=== PATIENT | male | born 1945 | race Caucasian/White ===

== ENCOUNTER 2018-07-25 14:39 | Observation (INO) | payer OTHER, MEDICARE ==
--- NOTE | 2018-07-25 14:45 | PDOC ---
Rapid Medical Evaluation Chief Complaint: Constipation Time Seen by Provider: 07/25/18 14:41 Medical Evaluation: Allergies Allergy/AdvReac Type Severity Reaction Status Date / Time No Known Allergies Allergy Verified 03/01/18 16:08 07/25/18 14:42 I have performed a brief in person evaluation of this patient. The patient present with a CC of: Constipation x 1 with nausea. Pertinent PE findings: Lungs Clear Heart A fib Abd: Soft, non distended. Bowel sounds in all four quadrants. No pain upon palpation. I have ordered the following: KUB The patient will proceed to the ED for further evaluation: Discharge Disposition - Diagnosis Constipation Qualifiers: Constipation type: unspecified constipation type Qualified Code(s): K59.00 - Constipation, unspecified - Referrals Referrals: Willem Morelos MD [Primary Care Provider] - - Patient Instructions - Post Discharge Activity
--- NOTE | 2018-07-25 16:38 | PDOC ---
History of Present Illness - General History Source: Patient Exam Limitations: No Limitations - History of Present Illness Initial Comments: 07/25/18 17:24 The patient is a 73 year old male, with a significant past medical history of Afib, HTN, chronic lower extremity edema (following up with wound care), and spinal stenosis, who presents to the emergency department with, 2 weeks of constipation and nausea without emesis. Patient notes this occurs every 3 days. His last attempt at a bowel movement was 3 days ago without relief and significant straining. Patient notes he does not drink much water and consumes a salty diet. Patient saw SANYA Jackson, today who advised him to report to the ED for further evaluation and CT scan. He denies any recent fevers, chills, headache or dizziness. He denies any recent chest pain or shortness of breath. He denies any recent dysuria, frequency, urgency or hematuria. Allergies: NKDA Primary Care Physician: Dr. Mcdowell <Hernandez Mojica - Last Filed: 07/25/18 17:37> <Karena Wong - Last Filed: 07/25/18 17:45> <Veronica Polk - Last Filed: 07/25/18 23:10> - General Chief Complaint: Constipation Stated Complaint: CONSTIPATION Time Seen by Provider: 07/25/18 14:41 Past History <Hernandez Mojica - Last Filed: 07/25/18 17:37> <Karena Wong - Last Filed: 07/25/18 17:45> - Past Medical History Cardiac Disorders: Yes (Afib-on pradaxda) COPD: No HTN: Yes - Suicide/Smoking/Psychosocial Hx Smoking History: Never smoked Have you smoked in the past 12 months: No Information on smoking cessation initiated: No Hx Alcohol Use: No Drug/Substance Use Hx: No Substance Use Type: None <Veronica Polk - Last Filed: 07/25/18 23:10> - Past Medical History Allergies/Adverse Reactions: Allergies Allergy/AdvReac Type Severity Reaction Status Date / Time No Known Allergies Allergy Verified 03/01/18 16:08 Home Medications: Ambulatory Orders Dabigatran Etexilate Mesylate [Pradaxa -] 150 mg PO BID 03/05/17 Losartan Potassium 1 tab PO DAILY 03/05/17 Metoprolol Succinate [Toprol Xl] 100 mg PO DAILY 03/05/17 Cholecalciferol (Vitamin D3) [Vitamin D3] 10,000 unit PO DAILY 07/25/18 Torsemide 20 mg PO DAILY 07/25/18 Review of Systems - Review of Systems Able to Perform ROS?: Yes Comments:: 07/25/18 17:25 GENERAL/CONSTITUTIONAL: No fever or chills. No weakness. HEAD, EYES, EARS, NOSE AND THROAT: No change in vision. No ear pain or discharge. No sore throat. +GASTROINTESTINAL: Constipation. Nausea. No vomit. GENITOURINARY: No dysuria, frequency, or change in urination. CARDIOVASCULAR: No chest pain or shortness of breath. RESPIRATORY: No cough, wheezing, or hemoptysis. MUSCULOSKELETAL: No joint or muscle swelling or pain. No neck or back pain. SKIN: No rash NEUROLOGIC: No headache, vertigo, loss of consciousness, or change in strength/ sensation. ENDOCRINE: No increased thirst. No abnormal weight change. HEMATOLOGIC/LYMPHATIC: No anemia, easy bleeding, or history of blood clots. ALLERGIC/IMMUNOLOGIC: No hives or skin allergy. All Other Systems: Reviewed and Negative <Hernandez Mojica - Last Filed: 07/25/18 17:37> *Physical Exam - Vital Signs Last Vital Signs Temp Pulse Resp BP Pulse Ox 98.2 F 82 18 156/73 100 07/25/18 14:42 07/25/18 14:42 07/25/18 14:42 07/25/18 14:42 07/25/18 14:42 - Physical Exam Comments: 07/25/18 17:25 Constitutional: Awake, alert, oriented. No acute distress. Head: Normocephalic. Atraumatic Eyes: PERRL. EOMI. Conjunctivae are not pale. ENT: Mucous membranes are moist and intact. Posterior pharynx without exudates or erythema. Uvula midline. Neck: Supple. Full ROM. No lymphadenopathy. Cardiovascular: Regular rate. Regular rhythm. S1, S2 regular. Distal pulses are 2+ and symmetric. Pulmonary/Chest: No evidence of respiratory distress. Clear to auscultation bilaterally No wheezing, rales or rhonchi. Abdominal: Soft and non-distended. There is no tenderness. No rebound, guarding or rigidity. No organomegaly. No palpable masses. Good bowel sounds. Back: No CVA tenderness. +Musculoskeletal: Bilateral lower extremity edema, wounds wrapped by wound care. No cyanosis. No clubbing. Full range of motion in all extremities. No calf tenderness. Radial/pedal pulses are intact and 2+ bilaterally Skin: Skin is warm and dry. No petechiae. No purpura. Neurological: Alert and oriented to person, place, and time. Cranial nerves II -XII are grossly intact. Normal speech. Strength is grossly symmetric. No sensory deficits. Psychiatric: Good eye contact. Normal interaction, affect and behavior. <Hernandez Mojica - Last Filed: 07/25/18 17:37> - Vital Signs Last Vital Signs Temp Pulse Resp BP Pulse Ox 98.2 F 82 18 156/73 100 07/25/18 14:42 07/25/18 14:42 07/25/18 14:42 07/25/18 14:42 07/25/18 14:42 <Karena Wong - Last Filed: 07/25/18 17:45> - Vital Signs Last Vital Signs Temp Pulse Resp BP Pulse Ox 98.2 F 82 18 156/73 100 07/25/18 14:42 07/25/18 14:42 07/25/18 14:42 07/25/18 14:42 07/25/18 14:42 <Veronica Polk - Last Filed: 07/25/18 23:10> ED Treatment Course - LABORATORY CBC & Chemistry Diagram: 07/25/18 17:13 07/25/18 17:24 - ADDITIONAL ORDERS Additional order review: Laboratory Results 07/25/18 16:56 Stool Occult Blood Negative - Medications Given in the ED: ED Medications Discontinued Medications Generic Name Dose Route Start Last Admin Trade Name Freq PRN Reason Stop Dose Admin Sodium Chloride 500 ml 07/25/18 16:54 07/25/18 17:24 Normal Saline - IV 07/25/18 16:55 500 ml ONCE ONE Administration <Hernandez Mojica - Last Filed: 07/25/18 17:37> - LABORATORY CBC & Chemistry Diagram: 07/25/18 17:13 07/25/18 17:24 - ADDITIONAL ORDERS Additional order review: Laboratory Results 07/25/18 16:56 Stool Occult Blood Negative 07/25/18 17:13 RBC 5.11 MCV 90.3 MCHC 33.5 RDW 13.7 MPV 7.9 Neutrophils % 81.5 Lymphocytes % 8.5 Monocytes % 7.7 Eosinophils % 1.5 Basophils % 0.8 - Medications Given in the ED: ED Medications Discontinued Medications Generic Name Dose Route Start Last Admin Trade Name Katarina PRN Reason Stop Dose Admin Sodium Chloride 500 ml 07/25/18 16:54 07/25/18 17:24 Normal Saline - IV 07/25/18 16:55 500 ml ONCE ONE Administration <Karena Wong - Last Filed: 07/25/18 17:45> - LABORATORY CBC & Chemistry Diagram: 07/25/18 17:13 07/25/18 17:24 <Veronica Polk - Last Filed: 07/25/18 23:10> Medical Decision Making - Medical Decision Making 07/25/18 5:00pm Call placed to Dr. Rodriguez, patient's GI, awaiting call back. 5:39pm Second call placed to Dr. Rodriguez, awaiting call back. <Hernandez Mojica - Last Filed: 07/25/18 17:37> - Medical Decision Making 07/25/18 17:[address] Rodriguez at 17:45. <Karena Wong - Last Filed: 07/25/18 17:45> - Medical Decision Making 07/25/18 16:56 a/p: 73yo male with constipation x 3 weeks -pt saw dr. mcdowell who recommended GI outpt follow up -pt was seen by GI today who sent the patient to the ED for further eval and ct imaging for constipation -pt denies prior abd surgery -pt denies vomiting -no diarrhea -+nausea -call placed to Dr. Rodriguez - the fan blade truer to discuss the case -will place iv, labs, ct abd/pelvis -will monitor and reassess 07/25/18 17:[address] Rodriguez who states the patient has had nausea, dry heaves, and obstipation x 3 weeks. Pt c/o decreased po intake over the last few weeks. Pt was told to go to [facility] for a ct and labs requests ct be performed here and give a disk and copy of radiology report for the CT 07/25/18 22:44 pt with HENOK - will cont ivf hydration 07/25/18 22:44 ct reviewed, no abd pain - low suspicion for ileitis will place in obs for ivf hydration 07/25/18 23:10 case discussed with IM who accepts pt to obs <Veronica Polk - Last Filed: 07/25/18 23:10> *DC/Admit/Observation/Transfer - Attestations Scribe Attestion: 07/25/18 17:25 Documentation prepared by Hernandez Mojica, acting as medical claims examiner for Veronica Polk DO. <Hernandez Mojica - Last Filed: 07/25/18 17:37> <Karena Wong - Last Filed: 07/25/18 17:45> - Discharge Dispostion Decision to Admit order: Yes - Attestations Physician Attestion: 07/25/18 23:09 I, Dr. Veronica Polk DO, attest that this document has been prepared under my direction and personally reviewed by me in its entirety. I further attest, that it accurately reflects all work, treatment, procedures and medical decision -making performed by me. <Veronica Polk - Last Filed: 07/25/18 23:10> Diagnosis at time of Disposition: HENOK (acute kidney injury) Constipation Qualifiers: Constipation type: unspecified constipation type Qualified Code(s): K59.00 - Constipation, unspecified - Discharge Dispostion Condition at time of disposition: Fair - Referrals Referrals: Willem Morelos MD [Primary Care Provider] - - Patient Instructions - Post Discharge Activity
[2018-07-25] MEDS ORDERED: SODIUM CHLORIDE 0.9% 1000 ML INFUS.BAG IV ONE ×2 (16:54→22:42)
[2018-07-25 17:26] LABS: BASO % 0.8 % (0-2.0); EOS % 1.5 % (0-4.5); HEMATOCRIT 46.2 % (35.4-49); HEMOGLOBIN 15.5 GM/dL (11.7-16.9); LYMPH % 8.5 % (8-40); MCH 30.2 pg (25.7-33.7); MCHC 33.5 g/dl (32.0-35.9); MEAN CELL VOLUME 90.3 fl (80-96); MEAN PLT VOLUME 7.9 fl (7.5-11.1); MONO % 7.7 % (3.8-10.2); NEUT % 81.5 % (42.8-82.8); PLATELET COUNT 189 K/MM3 (134-434); RBC 5.11 M/mm3 (4.00-5.60); RDW 13.7 % (11.9-15.9); WHITE BLOOD COUNT 7.5 K/mm3 (4.0-10.0)
[2018-07-25 17:45] LABS: INR 1.25 (0.83-1.09); PROTHROMBIN TIME (PATIENT) 14.8 SEC (9.7-13.0)
[2018-07-25] MEDS ORDERED: ONDANSETRON 4 MG/2 ML VIAL IVPUSH ONE (17:47)
[2018-07-25 17:48] LABS: ACTIVATED PTT 45.1 SECONDS (25.2-36.5)
[2018-07-25 17:55] LABS: URINE APPEARANCE CLEAR; URINE BILIRUBIN NEGATIVE (<2.0 mg/dL); URINE COLOR YELLOW; URINE GLUCOSE (UA) NEGATIVE (NEGATIVE); URINE KETONE TRACE (NEGATIVE); URINE LEUK ESTERASE NEGATIVE (NEGATIVE); URINE NITRITE NEGATIVE (NEGATIVE); URINE PROTEIN NEGATIVE (NEGATIVE); URINE UROBILINOGEN NEGATIVE mg/dL (0.2-1.0)
[2018-07-25 18:00] LABS: ALBUMIN 4.1 g/dl (3.4-5.0); ALK PHOS 98 U/L (45-117); ANION GAP 12 MMOL/L (8-16); BILIRUBIN,TOTAL 1.4 mg/dL (0.2-1); BLOOD UREA NITROGEN 21 mg/dL (7-18); CALCIUM 9.2 mg/dL (8.5-10.1); CHLORIDE 104 mmol/L (98-107); CO2 26 mmol/L (21-32); CREATININE 1.8 mg/dL (0.55-1.3); GLUCOSE,RANDOM 81 mg/dL (74-106); LIPASE 70 U/L (73-393); POTASSIUM 4.5 mmol/L (3.5-5.1); SGOT/AST 21 U/L (15-37); SGPT/ALT 20 U/L (13-61); SODIUM 142 mmol/L (136-145); TOT PROT 8.1 g/dl (6.4-8.2)
[2018-07-25] MEDS ORDERED: ONDANSETRON 4 MG/2 ML VIAL ONE (18:17)
[2018-07-25] MEDS ORDERED: METOPROLOL TARTRATE 5 MG/5 ML VIAL IVPUSH ONE (23:58)
[2018-07-26] MEDS ORDERED: METOPROLOL TARTRATE 5 MG/5 ML VIAL ONE (00:01)
[2018-07-26] MEDS ORDERED: POLYETHYLENE GLYCOL 3350 119 GM BTL PO PRN (00:29)
[2018-07-26] MEDS ORDERED: LACTATED RINGERS SOLUTION 1,000 ML/1,000 ML INFUS.BAG IV SCH (00:30)
--- NOTE | 2018-07-26 00:34 | HP ---
CHIEF COMPLAINT: constipation PCP: HISTORY OF PRESENT ILLNESS: Patient is a 73 y/o male with a history of afib, HTN, and LE edema who presents with constipation. He reports for the past three weeks he has been constipated. His last bowel movement was yesterday and reports it was very hard. He reports he feels like he really has to go, but nothing comes out. When he does have a bowel movement he doesn't have any pain. He does not have a past history of this. He reports his diet has been the same, but he only drinks one mug of water a day. Patient also has nausea typically when he has the feeling he needs to defecate. He has not vomited. He has not had any abdominal surgery. Patient denies any recent sick contacts, headache, chest pain, or shortness of breath. ER course was notable for: (1) po hydration (2) (3) Recent Travel: denies PAST MEDICAL HISTORY: afib, HTN, and LE edema PAST SURGICAL HISTORY: Social History: Smoking: denies Alcohol: Drugs: Family History: Allergies No Known Allergies Allergy (Verified 03/01/18 16:08) HOME MEDICATIONS: Home Medications Medication Instructions Recorded Dabigatran Etexilate Mesylate 150 mg PO BID 03/05/17 [Pradaxa -] Losartan Potassium 1 tab PO DAILY 03/05/17 Metoprolol Succinate [Toprol Xl] 100 mg PO DAILY 03/05/17 Cholecalciferol (Vitamin D3) 10,000 unit PO DAILY 07/25/18 [Vitamin D3] Torsemide 20 mg PO DAILY 07/25/18 REVIEW OF SYSTEMS CONSTITUTIONAL: Absent: fever, chills, diaphoresis, generalized weakness, malaise, loss of appetite, weight change HEENT: Absent: rhinorrhea, nasal congestion, throat pain, throat swelling, difficulty swallowing, mouth swelling, ear pain, eye pain, visual changes CARDIOVASCULAR: Absent: chest pain, syncope, palpitations, irregular heart rate, lightheadedness , peripheral edema RESPIRATORY: Absent: cough, shortness of breath, dyspnea with exertion, orthopnea, wheezing, stridor, hemoptysis GASTROINTESTINAL: Absent: abdominal pain, abdominal distension, nausea, vomiting, diarrhea, constipation, melena, hematochezia GENITOURINARY: Absent: dysuria, frequency, urgency, hesitancy, hematuria, flank pain, genital pain MUSCULOSKELETAL: Absent: myalgia, arthralgia, joint swelling, back pain, neck pain SKIN: Absent: rash, itching, pallor HEMATOLOGIC/IMMUNOLOGIC: Absent: easy bleeding, easy bruising, lymphadenopathy, frequent infections ENDOCRINE: Absent: unexplained weight gain, unexplained weight loss, heat intolerance, cold intolerance NEUROLOGIC: Absent: headache, focal weakness or paresthesias, dizziness, unsteady gait, seizure, mental status changes, bladder or bowel incontinence PSYCHIATRIC: Absent: anxiety, depression, suicidal or homicidal ideation, hallucinations. PHYSICAL EXAMINATION Vital Signs - 24 hr 07/25/18 07/25/18 07/26/18 14:42 19:11 00:13 Temperature 98.2 F 98 F Pulse Rate 82 Pulse Rate [ 108 H Right Radial] Respiratory 18 18 Rate Blood Pressure 156/73 158/94 Blood Pressure 135/95 [Left Arm] O2 Sat by Pulse 100 98 Oximetry (%) GENERAL: Awake, alert, and fully oriented, in no acute distress. HEAD: Normal with no signs of trauma. EYES: Pupils equal, round and reactive to light, extraocular movements intact, sclera anicteric, conjunctiva clear. EARS, NOSE, THROAT: Moist mucous membranes NECK: Normal range of motion, supple without lymphadenopathy, JVD, or masses. LUNGS: Breath sounds equal, clear to auscultation bilaterally. No wheezes, and no crackles. No accessory muscle use. HEART: irregu;ar, 3+ systolic murmur heard best at [place] ABDOMEN: Soft, nontender, not distended, hyperactive bowel sounds, no guarding, no rebound, no masses. MUSCULOSKELETAL: Normal range of motion at all joints. No bony deformities or tenderness. No CVA tenderness. LOWER EXTREMITIES: LE edematous bilaterally, wrapped NEUROLOGICAL: Cranial nerves II-XII intact. Normal speech. Normal gait. PSYCHIATRIC: Cooperative. Good eye contact. Appropriate mood and affect. SKIN: Warm, dry, normal turgor, no rashes or lesions noted, normal capillary refill. CBC, BMP 07/25/18 17:13 07/25/18 17:24 ASSESSMENT/PLAN: Patient is a 73 y/o male with a history of afib, HTN, and LE edema who presents with constipation. #HENOK 2/2 to dehydration - Cr 1.8, unknown baseline - continue LR @ 100 - f/u Cr tomorrow - CT: mild right renal hypertrophy - consider nephrology if Cr does not improve #Constipation 2/2 to dehydration - Docusate/Senna 2 tab BID - Miralax prn - fleet enema if needed - CT: mild concentric wall thickening along terminal ileum, no colonic fecal retention # afib - continue anticoagulation and rate control home meds - patient missed home dose of medications while in hospital today #HTN - continue home medications Visit type - Emergency Visit Emergency Visit: Yes ED Registration Date: 07/25/18 Care time: The patient presented to the Emergency Department on the above date and was hospitalized for further evaluation of their emergent condition. - New Patient This patient is new to me today: Yes Date on this admission: 07/26/18 - Critical Care Critical Care patient: No
[2018-07-26] MEDS ORDERED: DABIGATRAN ETEXILATE MESYLATE 75 MG CAPSULE PO SCH (00:45)
[2018-07-26] MEDS: SENNOSIDES/DOCUSATE COMBO (SENNA PLUS) TABLET (UD) PO SCH ×2 (01:41→10:35)
--- NOTE | 2018-07-26 02:29 | PN ---
Teaching Attending Note Name of Resident: Monique Norris ATTENDING PHYSICIAN STATEMENT I saw and evaluated the patient. I reviewed the resident's note and discussed the case with the resident. I agree with the resident's findings and plan as documented. SUBJECTIVE: Patient is a very pleasant 73 y/o CM with a PMH significant for Afib on MS and Pradaxa, Chronic LE wounds with Qweek dressing changes, obesity, HTN. He presents to the ER with a CC of constipation. He has not been able to have a BM for several days despite trying; will pass small, hard stools. Has been trying PRN stool softeners at home but no relief. Admits he drinks very little ; he drinks only 'one mug' of water per day; used to drink a good amount of soda but was told to stop so he hasn't even been having that intake. He does have an elevated Cr. and an unknown baseline. Is still making urine PMH and PSH per chart Social: Denies EtOH, tobacco FH asked and noncontributory 10 sys ROS done and negative aside from HPI OBJECTIVE: VSS, labs and imaging reviewed NAD, resting in bed, AAOx3 NT ND +BS Normal skin turgor, no rashes Sym CW expansion with lungs ctab CN2-12 grossly intact without FNDs Normal mood, appropriate behavior CT shows no necessary acute abnormalities and does not endorse fecal retention. Notable for enlarged pelvic LN and adrenal myelolipoma. ASSESSMENT AND PLAN: Mr. Ring is a 73 y/o CM presenting with constipation and found to have an HENOK with unknown baseline. 1) HENOK -Unknown baseline; empirically hydrating -Monitor BMP, UOP -If worsens obtain FeNa and consult nephrology -Holding losartan 2) Acute Constipation -No fecal burdeon seen on CT; no obstruction -Stool softeners, PRN miralax. If no BM will proceed with enema. 3) Afib -Continue home meds; was slightly tachy on presentation likely due to dehydration and not taking meds today 4) HTN -Hold losartan as #1; resume when clinically appropriate. 5) Chronic LE wounds/edema -Consult wound care for dressing change (he follows here) 6) Pelvic LN -Followup as outpatient; incidental finding on CT 7) Adrenal myelolipoma -Followup as outpatient; incidental finding on CT Full Code
[2018-07-26 04:24] VITALS: BMI 32.7
--- NOTE | 2018-07-26 09:31 | EKG ---
Test Reason : Blood Pressure : / mmHG Vent. Rate : 128 BPM Atrial Rate : 159 BPM P-R Int : 000 ms QRS Dur : 076 ms QT Int : 292 ms P-R-T Axes : 000 -26 090 degrees QTc Int : 426 ms POOR DATA QUALITY, INTERPRETATION MAY BE ADVERSELY AFFECTED ATRIAL FIBRILLATION WITH RAPID VENTRICULAR RESPONSE MODERATE VOLTAGE CRITERIA FOR LVH, MAY BE NORMAL VARIANT NONSPECIFIC T WAVE ABNORMALITY ABNORMAL ECG NO PREVIOUS ECGS AVAILABLE Confirmed by JOHN TORRE, SKINNY ([id number]) on 07/26/2018 9:30:31 AM Referred By: Confirmed By:SKINNY LOPEZ MD
[2018-07-26] MEDS ORDERED: LOSARTAN POTASSIUM 50 MG TABLET (FP) PO SCH (10:00)
[2018-07-26] MEDS ORDERED: TORSEMIDE 20 MG TABLET (FP) PO SCH (10:00)
[2018-07-26] MEDS ORDERED: PATIENT'S OWN MEDICATION (NON-FORMULARY) (Cholecalciferol (Vitamin D3) [Vitamin D3] 10,000 PO SCH (10:00)
[2018-07-26] MEDS ORDERED: DABIGATRAN ETEXILATE MESYLATE 150 MG CAPSULE PO SCH (10:00)
[2018-07-26] MEDS ORDERED: PT OWN MED DRAWER 7, Y5N ONE ×3 (10:41→13:24)
[2018-07-26 10:42] LABS: ANION GAP 7 MMOL/L (8-16); BLOOD UREA NITROGEN 23 mg/dL (7-18); CALCIUM 8.6 mg/dL (8.5-10.1); CHLORIDE 104 mmol/L (98-107); CO2 27 mmol/L (21-32); CREATININE 1.7 mg/dL (0.55-1.3); GLUCOSE,RANDOM 96 mg/dL (74-106); POTASSIUM 4.2 mmol/L (3.5-5.1); SODIUM 139 mmol/L (136-145)
[2018-07-26 13:49] VITALS: BP 156/88; PULSE 95; TEMP 97.3
--- NOTE | 2018-07-26 16:01 | PN ---
Progress Note (short form) - Note Progress Note: VAscular Surgery Pt seen and examined. Bl lower ext doing well. Cont alginate and williams wraps. Pt being DC today. Will come back to [facility] next week. Judd Greer DO
--- NOTE | 2018-07-26 17:58 | PN ---
Teaching Attending Note Name of Resident: Wen Elizabeth ATTENDING PHYSICIAN STATEMENT I saw and evaluated the patient. I reviewed the resident's note and discussed the case with the resident. I agree with the resident's findings and plan as documented. 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 ABd: SOft, NT/ND lABS: CBCD WBC 7.5 K/mm3 (4.0-10.0) 07/25/18 17:13 RBC 5.11 M/mm3 (4.00-5.60) 07/25/18 17:13 Hgb 15.5 GM/dL (11.7-16.9) 07/25/18 17:13 Hct 46.2 % (35.4-49) 07/25/18 17:13 MCV 90.3 fl (80-96) 07/25/18 17:13 MCHC 33.5 g/dl (32.0-35.9) 07/25/18 17:13 RDW 13.7 % (11.9-15.9) 07/25/18 17:13 Plt Count 189 K/MM3 (134-434) 07/25/18 17:13 MPV 7.9 fl (7.5-11.1) 07/25/18 17:13 CMP Sodium 139 mmol/L (136-145) 07/26/18 09:40 Potassium 4.2 mmol/L (3.5-5.1) 07/26/18 09:40 Chloride 104 mmol/L (98-107) 07/26/18 09:40 Carbon Dioxide 27 mmol/L (21-32) 07/26/18 09:40 Anion Gap 7 MMOL/L (8-16) L 07/26/18 09:40 BUN 23 mg/dL (7-18) H 07/26/18 09:40 Creatinine 1.7 mg/dL (0.55-1.3) H 07/26/18 09:40 Creat Clearance w eGFR 39.82 (>60) 07/26/18 09:40 Calcium 8.6 mg/dL (8.5-10.1) 07/26/18 09:40 Total Bilirubin 1.4 mg/dL (0.2-1) H 07/25/18 17:24 AST 21 U/L (15-37) 07/25/18 17:24 ALT 20 U/L (13-61) 07/25/18 17:24 Alkaline Phosphatase 98 U/L (45-117) 07/25/18 17:24 Total Protein 8.1 g/dl (6.4-8.2) 07/25/18 17:24 Albumin 4.1 g/dl (3.4-5.0) 07/25/18 17:24 ASSESSMENT AND PLAN: 73 y/o M W Afib on MS and Pradaxa, Chronic LE wounds with Qweek dressing changes, obesity, HTN. He presents to the ER with a CC of constipation. constipation has resolved: as he complains of weight loss and his last colonoscopy more than 10 years ago, encouraged to get colonoscopy as O/P to which he agreed. encouraged to iprve his bowel regimen HENOK: likely due to decreaed po intake, has o F/u with PMD as O/P in 1 week Dispo: home rest of the management per HS note
--- NOTE | 2018-07-26 17:59 | DS ---
Physical Exam: SUBJECTIVE: Patient seen and examined at bedside. Patient states he is no longer having any more nausea or constipation. In fact, this morning he has three bowel movements. He states he felt better and less bloated/nauseous after eating breakfast this morning. He denies any CP/SOB/N/V fevers or chills. OBJECTIVE: Vital Signs Period Temp Pulse Resp BP Sys/Whelan Pulse Ox Last 24 Hr 97.3 F-98.5 F 95-108 18-20 135-158/78-95 97-99 PHYSICAL EXAM GENERAL: The patient is awake, alert, and fully oriented, in no acute distress. EYES:no Scleral icterus NECK: no JVD LUNGS: CTA B/L; no rales, rhonchi or wheezing HEART: Regular rate and rhythm, S1, S2 without murmur, rub or gallop. ABDOMEN: Soft, nontender, nondistended, normoactive bowel sounds, no guarding, no rebound, no hepatosplenomegaly, no masses. EXTREMITIES: 2+ pulses, warm, well-perfused, no edema. chronic venous stasis changes B/L PSYCH: Normal mood, normal affect. SKIN: Warm, dry, normal turgor, no rashes or lesions noted. LABS Laboratory Results - last 24 hr 07/25/18 07/25/18 07/25/18 17:13 17:13 17:13 PT with INR 14.80 H INR 1.25 H PTT (Actin FS) 45.1 H Sodium Potassium Chloride Carbon Dioxide Anion Gap BUN Creatinine Creat Clearance w eGFR Random Glucose Lactic Acid 1.7 Calcium Magnesium Total Bilirubin AST ALT Alkaline Phosphatase Total Protein Albumin Lipase Urine Color Yellow Urine Appearance Clear Urine pH 5.0 Ur Specific [place] 1.014 Urine Protein Negative Urine Glucose (UA) Negative Urine Ketones Trace H Urine Blood Negative Urine Nitrite Negative Urine Bilirubin Negative Urine Urobilinogen Negative Ur Leukocyte Esterase Negative 07/25/18 07/26/18 17:24 09:40 PT with INR INR PTT (Actin FS) Sodium 142 139 Potassium 4.5 4.2 Chloride 104 104 Carbon Dioxide 26 27 Anion Gap 12 7 L BUN 21 H 23 H Creatinine 1.8 H 1.7 H Creat Clearance w eGFR 37.27 39.82 Random Glucose 81 96 Lactic Acid Calcium 9.2 8.6 Magnesium 2.0 Total Bilirubin 1.4 H AST 21 ALT 20 Alkaline Phosphatase 98 Total Protein 8.1 Albumin 4.1 Lipase 70 L Urine Color Urine Appearance Urine pH Ur Specific [place] Urine Protein Urine Glucose (UA) Urine Ketones Urine Blood Urine Nitrite Urine Bilirubin Urine Urobilinogen Ur Leukocyte Esterase Imaging: abdominal pelvis/CT No definite CT findings of acute abnormality are identified. There is equivocal mild concentric wall thickening along the terminal ileum which is probably artifactual due to limited distention and less likely on the basis of ileitis. Correlate clinically. If there is clinical concern in this regard additional evaluation utilizing nonemergent CT enterography may be considered. Minimal to mild splenomegaly. A nonspecific mildly enlarged left pelvic lymph node is noted. Additional evaluation utilizing PET/ CT may be considered. Alternatively comparison with previous CT/MRI studies would be helpful if available from a different facility to document stability. Cholelithiasis. Small to moderate umbilical hernia containing fat only. Mild right renal atrophy (8.4 cm length). 4.9 x 3.9 cm left adrenal myelolipoma. There is partial imaging of cardiomegaly which is probably mild. If clinically indicated correlate with radiography and/or echocardiography. No significant colonic fecal retention is noted. HOSPITAL COURSE: Date of Admission:07/25/18 73 y/o male with PMH of Afib, HTN, chronic LE wounds, presented to the ED with complaints of nausea and constipation for the past 3 days. Patient endorses to having had decreased fiber intake and decreased water intake. On arrival to the ED, patients labs were within normal limits except he did have an HENOK with a Cr of 1.7, unclear what his baseline was- likely secondary to dehydration. An abdominal/pelvis CT was done showing no evidence of fecal retention. Patient was given fluids, started on a bowel regimen and his constipation subsided and his HENOK improved with his Cr upon discharge being 1.3 He was given strict instruction to follow up with his PCP within one week. Date of Discharge: 07/26/18 Minutes to complete discharge: 39 Discharge Summary Reason For Visit: ACUTE KIDNEY INJURY Condition: Improved - Instructions Diet, Activity, Other Instructions: You were seen in the hospital for constipation. You received a bowel regimen to help you go as well as an enema, which relieved your constipation. Your kidneys were mildly injured in the hospital, likely due to dehydration. You should follow with your primary care physician to evaluate your kidneys within 1 week. Medical Recommendations: Please make an appointment in 1 week to with your primary care physician Please make an appointment within 1 month with a shake sawyer (which we can provide) for possible colonoscopy Please drink ample amounts of water to help with your kidneys Avoid medications such as advil, aleve, motrin, ibuprofen, which can all harm your kidneys If you experience severe pain, nausea, vomiting, diarrhea, fevers, chills, chest pain or shortness of breath, please return to the emergency department immediately. Referrals: Ct Bailey DO [Staff Physician] - 1 Month Willem Morelos MD [Primary Care Provider] - 1 Week Disposition: HOME - Home Medications Comprehensive Discharge Medication List: Ambulatory Orders Dabigatran Etexilate Mesylate [Pradaxa -] 150 mg PO BID 03/05/17 Losartan Potassium 1 tab PO DAILY 03/05/17 Metoprolol Succinate [Toprol Xl] 100 mg PO DAILY 03/05/17 Cholecalciferol (Vitamin D3) [Vitamin D3] 10,000 unit PO DAILY 07/25/18 Torsemide 20 mg PO DAILY 07/25/18 Problem List - Problems (1) HENOK (acute kidney injury) Code(s): N17.9 - ACUTE KIDNEY FAILURE, UNSPECIFIED (2) Constipation Code(s): K59.00 - CONSTIPATION, UNSPECIFIED Qualifiers: Constipation type: unspecified constipation type Qualified Code(s): K59.00 - Constipation, unspecified This patient is new to me today: Yes Date on this admission: 07/26/18 Emergency Visit: Yes ED Registration Date: 07/25/18 Care time: The patient presented to the Emergency Department on the above date and was hospitalized for further evaluation of their emergent condition. Critical Care patient: No - Discharge Referral Referred to [facility] Med P.C.: No
== END 2018-07-26 16:43 | disposition home or self-care (01) ==
LOC: JER 14:39 → JERBED 23:09 → J7W 07-26 03:41
PROVIDERS: ADMIT Internal Medicine; ATTEND Internal Medicine
PROC: 3E033GC Introduction of Other Therapeutic Substance into Peripheral Vein, Percutaneous Approach (ICD-10-PCS; principal; 2018-07-25)
PROC: 3E0337Z Introduction of Electrolytic and Water Balance Substance into Peripheral Vein, Percutaneous Approach (ICD-10-PCS; 2018-07-25)
DX: N17.9 Acute kidney failure, unspecified (principal); K59.00 Constipation, unspecified; E86.0 Dehydration; S81.809D Unspecified open wound, unspecified lower leg, subsequent encounter; X58.XXXD Exposure to other specified factors, subsequent encounter; I10 Essential (primary) hypertension; I48.91 Unspecified atrial fibrillation; R60.0 Localized edema; D17.79 Benign lipomatous neoplasm of other sites; R59.0 Localized enlarged lymph nodes
CPT/HCPCS: 36415; 74176-TC; 80048; 80053; 81003; 82272; 83605; 83690; 83735; 85025; 85610; 85730; 93005; 93010; 96374; 96375; 99285-25; G0378; J7030

== ENCOUNTER 2019-06-05 15:30 | Inpatient (IN) | payer OTHER, MEDICARE ==
--- NOTE | 2019-06-05 15:35 | PDOC ---
Rapid Medical Evaluation Chief Complaint: Wound Time Seen by Provider: 06/05/19 15:33 Medical Evaluation: Allergies Allergy/AdvReac Type Severity Reaction Status Date / Time No Known Allergies Allergy Verified 09/25/18 13:54 06/05/19 15:33 I have performed a brief in-person evaluation of this patient. The patient presents with a chief complaint of: sent from wound care for infection Pertinent physical exam findings: deferred I have ordered the following: labs, xray, urine The patient will proceed to the ED for further evaluation. Discharge Disposition - Diagnosis Venous ulcer - Referrals - Patient Instructions - Post Discharge Activity
--- NOTE | 2019-06-05 16:28 | PDOC ---
History of Present Illness - General Chief Complaint: Wound Stated Complaint: RT LEG WOUND Time Seen by Provider: 06/05/19 15:33 History Source: Patient Exam Limitations: No Limitations Past History - Travel Traveled outside of the country in the last 30 days: No Close contact w/someone who was outside of country & ill: No - Past Medical History Allergies/Adverse Reactions: Allergies Allergy/AdvReac Type Severity Reaction Status Date / Time No Known Allergies Allergy Verified 06/05/19 15:36 Home Medications: Ambulatory Orders Losartan Potassium 1 tab PO DAILY 03/05/17 Metoprolol Succinate [Toprol Xl] 200 mg PO DAILY 03/05/17 Cholecalciferol (Vitamin D3) [Vitamin D3] 10,000 unit PO DAILY 07/25/18 Torsemide 20 mg PO DAILY 07/25/18 Apixaban [Eliquis -] 5 mg PO BID 06/05/19 Anemia: No Asthma: No Cancer: No Cardiac Disorders: Yes (Afib-) CVA: No COPD: No CHF: No Dementia: No Diabetes: No GI Disorders: Yes Disorders: No HTN: Yes Hypercholesterolemia: No Liver Disease: No Seizures: No Thyroid Disease: No Other medical history: wound right leg - Surgical History Abdominal Surgery: No Appendectomy: No Cardiac Surgery: No Cholecystectomy: No Lung Surgery: No Neurologic Surgery: No Orthopedic Surgery: No - Suicide/Smoking/Psychosocial Hx Smoking History: Never smoked Have you smoked in the past 12 months: No Information on smoking cessation initiated: No Hx Alcohol Use: No Drug/Substance Use Hx: No Substance Use Type: None Hx Substance Use Treatment: No Review of Systems - Review of Systems Able to Perform ROS?: Yes Comments:: 06/05/19 19:36 CONSTITUTIONAL: Absent: fever, chills, diaphoresis, generalized weakness, malaise, loss of appetite HEENT: Absent: rhinorrhea, nasal congestion, throat pain, throat swelling, difficulty swallowing, mouth swelling, ear pain, eye pain, visual Changes CARDIOVASCULAR: Absent: chest pain, loss of consciousness, palpitations, irregular heart rate, peripheral edema RESPIRATORY: Absent: cough, shortness of breath, dyspnea with exertion, orthopnea, wheezing, stridor, hemoptysis GASTROINTESTINAL: Absent: abdominal pain, abdominal distension, nausea, vomiting, diarrhea, constipation, melena, hematochezia GENITOURINARY: Absent: dysuria, frequency, urgency, hesitancy, hematuria, flank pain, genital pain MUSCULOSKELETAL: Absent: myalgia, arthralgia, joint swelling SKIN: Present: redness, warmth, and weeping skin Absent: rash, itching, pallor HEMATOLOGIC/IMMUNOLOGIC: Absent: easy bleeding, easy bruising, lymphadenopathy, frequent infections ENDOCRINE: Absent: unexplained weight gain, unexplained weight loss, heat intolerance, cold intolerance NEUROLOGIC: Absent: headache, focal weakness or paresthesias, dizziness, unsteady gait, seizure, mental status changes, bladder or bowel incontinence PSYCHIATRIC: Absent: anxiety, depression, suicidal or homicidal ideation, hallucinations. Is the patient limited Mohawk proficient: No *Physical Exam - Vital Signs Last Vital Signs Temp Pulse Resp BP Pulse Ox 98.2 F 85 19 117/95 96 06/05/19 15:32 06/05/19 15:32 06/05/19 15:32 06/05/19 15:32 06/05/19 15:32 - Physical Exam Comments: 06/05/19 19:37 GENERAL: Well developed, well nourished. Awake and alert. No acute distress. HEENT: Normocephalic, atraumatic. PERRLA, EOMI. No conjunctival pallor. Sclera are non- icteric. Moist mucous membranes. Oropharynx is clear. NECK: Supple. Full ROM. No JVD. Carotid pulses 2+ and symmetric, without bruits. No thyromegaly. No lymphadenopathy. CARDIOVASCULAR: Regular rate and rhythm. No murmurs, rubs, or gallops. Distal pulses are 2+ and symmetric. PULMONARY: No evidence of respiratory distress. Lungs clear to auscultation bilaterally. No wheezing, rales or rhonchi. ABDOMINAL: Soft. Non-tender. Non-distended. No rebound or guarding. No organomegaly. Normoactive bowel sounds. MUSCULOSKELETAL Normal range of motion at all joints. No bony deformities or tenderness. No CVA tenderness. EXTREMITIES: No cyanosis. No clubbing. No edema. No calf tenderness. SKIN: Cellulitis with abrasions noted to the anterior RLE with associated weeping from the ankle to the knee. Normal capillary refill. No jaundice. NEUROLOGICAL: Alert, awake, appropriate. Cranial nerves 2-12 intact. No deficits to light touch and temperature in face, upper extremities and lower extremities. No motor deficits in the in face, upper extremities and lower extremities. Normoreflexic in the upper and lower extremities. Normal speech. Toes are down- going bilaterally. Gait is normal without ataxia. PSYCHIATRIC: Cooperative. Good eye contact. Appropriate mood and affect. ED Treatment Course - LABORATORY CBC & Chemistry Diagram: 06/05/19 18:00 06/05/19 18:42 Medical Decision Making - Medical Decision Making 06/05/19 19:38 The patient is a 74 y/o M with PMH of afib (on A/C), HTN, presents to the ER today with cellulitis to the RLE for one week. The patient states he went to wound care today and was told to come to the ER for evaluation. He states that the leg is very wet and warm to the touch. He notes that his leg has been very itchy as well and edematous. States that it is difficult to walk due to the leg swelling. Denies fevers, chills, lightheadedness, weakness, vomiting, chest pain , numbness, tingling and weakness to the affected extremity. PCP: Dr. Mcdowell A/P: Cellulitis On exam: Cellulitis with abrasions noted to the anterior RLE with associated weeping from the ankle to the knee. No leukocytosis, H&H stable Blood CX drawn CR 2.7, baseline 1.8. Will need admission for IV abx, vancomycin and zosyn given in the ED Symphony paged. Sign out given to Dr. Hinds *DC/Admit/Observation/Transfer Diagnosis at time of Disposition: HENOK (acute kidney injury) Cellulitis Qualifiers: Site of cellulitis: extremity Site of cellulitis of extremity: lower extremity Laterality: right Qualified Code(s): L03.115 - Cellulitis of right lower limb - Discharge Dispostion Condition at time of disposition: Stable Decision to Admit order: Yes - Referrals - Patient Instructions - Post Discharge Activity
[2019-06-05] MEDS ORDERED: VANCOMYCIN 1,000 MG in DEXTROSE 5%-WATER - 250 ML IVPB ONE (18:32)
[2019-06-05] MEDS ORDERED: PIPERACILLIN/TAZOB 3.375 GM 3.375 GM in DEXTROSE 5%-WATER - 50 ML IVPB ONE (18:32)
[2019-06-05 19:03] LABS: BASO % 0.5 % (0-2.0); EOS % 9.7 % (0-4.5); HEMATOCRIT 39.9 % (35.4-49); HEMOGLOBIN 13.2 GM/dL (11.7-16.9); LYMPH % 12.5 % (8-40); MCHC 33.2 g/dl (32.0-35.9); MEAN CELL VOLUME 93.5 fl (80-96); MEAN PLT VOLUME 8.5 fl (7.5-11.1); MONO % 10.7 % (3.8-10.2); NEUT % 66.6 % (42.8-82.8); PLATELET COUNT 230 K/MM3 (134-434); RBC 4.27 M/mm3 (4.00-5.60); RDW 15.7 % (11.9-15.9); WHITE BLOOD COUNT 8.5 K/mm3 (4.0-10.0)
[2019-06-05] MEDS ORDERED: PIPERACILLIN/TAZOB 3.375 GM 3.375 GM/50 ML BAG IVPB ONE (19:10)
[2019-06-05 19:15] LABS: INR 1.69 (0.83-1.09); PROTHROMBIN TIME (PATIENT) 20.1 SEC (9.7-13.0)
[2019-06-05 19:31] LABS: ALBUMIN 3.7 g/dl (3.4-5.0); BILIRUBIN,TOTAL 1.7 mg/dL (0.2-1); BLOOD UREA NITROGEN 40.9 mg/dL (7-18); CREATININE 2.7 mg/dL (0.55-1.3); POTASSIUM 4.9 mmol/L (3.5-5.1)
[2019-06-05] MEDS ORDERED: SODIUM CHLORIDE 1,000 ML IV STA (19:42)
[2019-06-05] MEDS ORDERED: VANCOMYCIN 1 GRAM (PRE-DOCKED) 1,000 MG/250 ML BAG IVPB ONE (20:07)
--- NOTE | 2019-06-05 21:52 | PDOC ---
*Physical Exam - Vital Signs Last Vital Signs Temp Pulse Resp BP Pulse Ox 98.2 F 85 19 117/95 96 06/05/19 15:32 06/05/19 15:32 06/05/19 15:32 06/05/19 15:32 06/05/19 15:32 ED Treatment Course - LABORATORY CBC & Chemistry Diagram: 06/05/19 18:00 06/05/19 18:42 - ADDITIONAL ORDERS Additional order review: Laboratory Results 06/05/19 06/05/19 18:42 18:00 PT with INR 20.10 H INR 1.69 H Sodium 138 Potassium 4.9 Chloride 104 Carbon Dioxide 30 Anion Gap 5 L BUN 40.9 H Creatinine 2.7 H Est GFR (CKD-EPI)AfAm 25.93 Est GFR (CKD-EPI)NonAf 22.37 Random Glucose 93 Calcium 10.0 Total Bilirubin 1.7 H AST 28 ALT 36 Alkaline Phosphatase 134 H Total Protein 8.0 Albumin 3.7 06/05/19 18:00 RBC 4.27 MCV 93.5 MCHC 33.2 RDW 15.7 D MPV 8.5 Neutrophils % 66.6 Lymphocytes % 12.5 D Monocytes % 10.7 H Eosinophils % 9.7 H D Basophils % 0.5 - Medications Given in the ED: ED Medications Discontinued Medications Generic Name Dose Route Start Last Admin Trade Name Freq PRN Reason Stop Dose Admin Vancomycin HCl 1,000 mg/ 250 mls @ 166.667 mls/hr 06/05/19 18:32 06/05/19 20: 14 Dextrose IVPB 06/05/19 20:01 166.667 mls/hr ONCE ONE Administration Piperacillin Sod/Tazobactam 50 mls @ 100 mls/hr 06/05/19 18:32 06/05/19 19:11 Sod 3.375 gm/ Dextrose IVPB 06/05/19 19:01 100 mls/hr ONCE ONE Administration Protocol Medical Decision Making - Medical Decision Making 06/05/19 21:52 Case reviewed, agree with assessment and plan *DC/Admit/Observation/Transfer Diagnosis at time of Disposition: HENOK (acute kidney injury) Cellulitis Qualifiers: Site of cellulitis: extremity Site of cellulitis of extremity: lower extremity Laterality: right Qualified Code(s): L03.115 - Cellulitis of right lower limb - Discharge Dispostion Condition at time of disposition: Stable - Referrals - Patient Instructions - Post Discharge Activity
--- NOTE | 2019-06-06 01:54 | HP ---
CHIEF COMPLAINT:RLE cellulitis PCP:Dr. Mcdowell HISTORY OF PRESENT ILLNESS: Patient is a 74 year old male with past medical history of Afib (on Eliquis), HTN, CHF and chronic venous insufficiency, presented to the ED from wound care clinic due to worsening right lower leg edema and redness for 1 week. Patient has history of bilateral venous dermatitis with excoriations for more than a year and follows up at the wound care clinic. For about a week, patient reported worsening of the right leg swelling and redness but denies any pain. He followed up at the wound care clinic and was sent down to the ED for further management. Patient denies any fever, chills, headache, dizziness, nausea, vomiting, chest pain, SOB, abdominal pain, diarrhea, urinary symptoms. ER course was notable for: (1)Right tibia/fibula xray - no acute right leg pathology (2)Vanc/zosyn given (3) Recent Travel:denies PAST MEDICAL HISTORY: Afib HTN CHF chronic venous insufficiency PAST SURGICAL HISTORY: Social History: Smoking:denies Alcohol:denies Drugs: denies Family History: Allergies No Known Allergies Allergy (Verified 06/05/19 15:36) HOME MEDICATIONS: Home Medications Medication Instructions Recorded Losartan Potassium 1 tab PO DAILY 03/05/17 Metoprolol Succinate [Toprol Xl] 200 mg PO DAILY 03/05/17 Cholecalciferol (Vitamin D3) 10,000 unit PO DAILY 07/25/18 [Vitamin D3] Torsemide 20 mg PO DAILY 07/25/18 Apixaban [Eliquis -] 5 mg PO BID 06/05/19 REVIEW OF SYSTEMS CONSTITUTIONAL: Absent: fever, chills, diaphoresis, generalized weakness, malaise, loss of appetite, weight change HEENT: Absent: rhinorrhea, nasal congestion, throat pain, throat swelling, difficulty swallowing, mouth swelling, ear pain, eye pain, visual changes CARDIOVASCULAR: Absent: chest pain, syncope, palpitations, irregular heart rate, lightheadedness , peripheral edema RESPIRATORY: Absent: cough, shortness of breath, dyspnea with exertion, orthopnea, wheezing, stridor, hemoptysis GASTROINTESTINAL: Absent: abdominal pain, abdominal distension, nausea, vomiting, diarrhea, constipation, melena, hematochezia GENITOURINARY: Absent: dysuria, frequency, urgency, hesitancy, hematuria, flank pain, genital pain MUSCULOSKELETAL: Absent: myalgia, arthralgia, joint swelling, back pain, neck pain SKIN: Absent: rash, itching, pallor HEMATOLOGIC/IMMUNOLOGIC: Absent: easy bleeding, easy bruising, lymphadenopathy, frequent infections ENDOCRINE: Absent: unexplained weight gain, unexplained weight loss, heat intolerance, cold intolerance NEUROLOGIC: Absent: headache, focal weakness or paresthesias, dizziness, unsteady gait, seizure, mental status changes, bladder or bowel incontinence PSYCHIATRIC: Absent: anxiety, depression, suicidal or homicidal ideation, hallucinations. PHYSICAL EXAMINATION Vital Signs - 24 hr 06/05/19 15:32 Temperature 98.2 F Pulse Rate 85 Respiratory 19 Rate Blood Pressure 117/95 O2 Sat by Pulse 96 Oximetry (%) GENERAL: Awake, alert, and fully oriented, in no acute distress. HEAD: Normal with no signs of trauma. EYES:PERRLA, EOMI, sclera anicteric, conjunctiva clear. EARS, NOSE, THROAT: Moist mucous membranes. NECK: Normal range of motion, supple. LUNGS: Breath sounds equal, clear to auscultation bilaterally. HEART: Irregular, systolic murmur heard best at RUSB ABDOMEN: Soft, nontender, not distended, normoactive bowel sounds. MUSCULOSKELETAL: Normal range of motion at all joints. No CVA tenderness. UPPER EXTREMITIES: 2+ pulses, warm, well-perfused. No peripheral edema. LOWER EXTREMITIES: 2+ pulses, warm, well-perfused. No calf tenderness. B/L LE edema. RLE: +erythema, edema, multiple excoriations, weeping NEUROLOGICAL: Cranial nerves II-XII intact. Normal speech. PSYCHIATRIC: Cooperative. Good eye contact. Appropriate mood and affect. Laboratory Results - last 24 hr 06/05/19 06/05/19 06/05/19 18:00 18:00 18:42 WBC 8.5 RBC 4.27 Hgb 13.2 Hct 39.9 MCV 93.5 MCH 31.0 MCHC 33.2 RDW 15.7 D Plt Count 230 D MPV 8.5 Absolute Neuts (auto) 5.6 Neutrophils % 66.6 Lymphocytes % 12.5 D Monocytes % 10.7 H Eosinophils % 9.7 H D Basophils % 0.5 Nucleated RBC % 0 PT with INR 20.10 H INR 1.69 H Sodium 138 Potassium 4.9 Chloride 104 Carbon Dioxide 30 Anion Gap 5 L BUN 40.9 H Creatinine 2.7 H Est GFR (CKD-EPI)AfAm 25.93 Est GFR (CKD-EPI)NonAf 22.37 Random Glucose 93 Calcium 10.0 Total Bilirubin 1.7 H AST 28 ALT 36 Alkaline Phosphatase 134 H Total Protein 8.0 Albumin 3.7 ASSESSMENT/PLAN: Patient is a 74 year old male with past medical history of Afib (on Eliquis), HTN, CHF and chronic venous insufficiency, presented to the ED from wound care clinic due to worsening right lower leg edema and redness for 1 week. #RLE cellulitis -Right tibia/fibula xray: no acute right leg pathology -Vanc/Zosyn given at the ED -will start Ceftriaxone 1gm daily -Vanc level in am -ESR/CRP ordered -Blood cultures done -ID (Dr. Allen) consulted. -keep leg elevated -will order duplex to rule out DVT #KIZZY on CKD -Cr 2.7 (baseline 1.7) -will order renal Us -Urine lytes -Daily weight, I&O -Avoid nephrotoxic agents such as NSAIDs, contrast. Will hold Losartan #Elevated T bili/Alk phos -will order liver US to rule out hepatobiliary pathology #Atrial fibrillation -Continue Eliquis 5mg bid -Continue Metoprolol 200mg daily #HTN -On Metroprolol -Will hold Losartan in light of Kizzy #CHF -Continue Torsemide #FEN -Not on any standing fluids -Electrolytes wnl, routine bmp monitoring -Sodium controlled diet #Prophylaxis -On Eliquis 5mg bid #Disposition -full code -admit to med surg Visit type - Emergency Visit Emergency Visit: Yes ED Registration Date: 06/05/19 Care time: The patient presented to the Emergency Department on the above date and was hospitalized for further evaluation of their emergent condition. - New Patient This patient is new to me today: Yes Date on this admission: 06/05/19 - Critical Care Critical Care patient: No ATTENDING PHYSICIAN STATEMENT I saw and evaluated the patient. I reviewed the resident's note and discussed the case with the resident. I agree with the resident's findings and plan as documented. SUBJECTIVE: OBJECTIVE: ASSESSMENT AND PLAN:
--- NOTE | 2019-06-06 02:02 | PN ---
Teaching Attending Note Name of Resident: Patricia England ATTENDING PHYSICIAN STATEMENT I saw and evaluated the patient. chart, data, imaging reviewed. I reviewed the resident's note and discussed the case with the resident. I agree with the resident's findings and plan as documented. SUBJECTIVE: 74 y/o M with PMH of afib (on A/C), HTN, sent from wound care clinic for worsening of right leg edema, erythema, pain. He denied trauma to his leg, no fevers, chills, or recent travels. OBJECTIVE: Last Vital Signs Temp Pulse Resp BP Pulse Ox 98.2 F 85 19 117/95 96 06/05/19 15:32 06/05/19 15:32 06/05/19 15:32 06/05/19 15:32 06/05/19 15:32 gen- nad, aaox3 heent , nc, at cv-irregularly irregular, no murmur chest clear ext- b/l lower ext chronic venous stasis, right leg swollen, 3+pitting edema, weeping, erythematous, warm to touch, no overt breaks in skin Abnormal Lab Results 06/05/19 06/05/19 06/05/19 18:00 18:00 18:42 Monocytes % 10.7 H Eosinophils % 9.7 H D PT with INR 20.10 H INR 1.69 H Anion Gap 5 L BUN 40.9 H Creatinine 2.7 H Total Bilirubin 1.7 H Alkaline Phosphatase 134 H xray of right leg appreciated ASSESSMENT AND PLAN: #cellulitis of right lower extremity. Leukocytosis+ DVT must be ruled out -med/surg -s/p vancomycin/zosyn -id consult -blood cultures x2 -esr, crp -lower ext duplex to r/o dvt -leg elevation #HENOK on ckd -i/o -daily weights -renal sonogram -avoid nephrotoxins #hyperbilirubinemia, elevated alk phos -no abd pain -consider hepatobiliary u/s if no improvement or symptoms #afib - c/w Apixaban dvt ppx -on eliquis
[2019-06-06 07:10] LABS: BASO % 0.8 % (0-2.0); EOS % 13.8 % (0-4.5); HEMATOCRIT 32.5 % (35.4-49); HEMOGLOBIN 11.2 GM/dL (11.7-16.9); LYMPH % 14.1 % (8-40); MCHC 34.5 g/dl (32.0-35.9); MEAN CELL VOLUME 92.6 fl (80-96); MEAN PLT VOLUME 8.1 fl (7.5-11.1); MONO % 11.8 % (3.8-10.2); NEUT % 59.5 % (42.8-82.8); PLATELET COUNT 173 K/MM3 (134-434); RBC 3.51 M/mm3 (4.00-5.60); RDW 15.4 % (11.9-15.9); WHITE BLOOD COUNT 5.4 K/mm3 (4.0-10.0)
[2019-06-06 07:21] LABS: ALBUMIN 2.8 g/dl (3.4-5.0); BILIRUBIN,TOTAL 1.3 mg/dL (0.2-1); BLOOD UREA NITROGEN 42.7 mg/dL (7-18); CALCIUM 8.9 mg/dL (8.5-10.1); CREATININE 2.9 mg/dL (0.55-1.3); MAGNESIUM 2.4 mg/dL (1.8-2.4); POTASSIUM 4.6 mmol/L (3.5-5.1); TOT PROT 6.1 g/dl (6.4-8.2)
--- NOTE | 2019-06-06 09:27 | CONSULT ---
- Consultation REQUESTING PROVIDER: CONSULT REQUEST: We have been asked to surgically evaluate this patient for B/l LE celluliltis PCP:Kosta Wall MD HISTORY OF PRESENT ILLNESS: 74yo M was consulted to Vascular/Wound care team for evaluation of b/l LE cellulitis, pt is known to the wound care service. Has long history of venous stasis changes in his legs. Pt was seen at the wound care clinic yesterday and found to have cellulitis and was sent to ED for evaluation. Pt states that his Rt leg is more swollen than than usually and is much more swollen than the Left. PMHx: HTN, afib, chf Home Medications Medication Instructions Recorded Losartan Potassium 1 tab PO DAILY 03/05/17 Metoprolol Succinate [Toprol Xl] 200 mg PO DAILY 03/05/17 Cholecalciferol (Vitamin D3) 10,000 unit PO DAILY 07/25/18 [Vitamin D3] Torsemide 20 mg PO DAILY 07/25/18 Apixaban [Eliquis -] 5 mg PO BID 06/05/19 Allergies Allergy/AdvReac Type Severity Reaction Status Date / Time No Known Allergies Allergy Verified 06/05/19 15:36 REVIEW OF SYSTEMS: CONSTITUTIONAL: Absent: fever, chills, diaphoresis, generalized weakness, malaise, loss of appetite, weight change CARDIOVASCULAR: Absent: chest pain, syncope, palpitations, irregular heart rate, lightheadedness , peripheral edema RESPIRATORY: Absent: cough, shortness of breath, dyspnea with exertion, wheezing, stridor, hemoptysis GASTROINTESTINAL: Absent: abdominal pain, abdominal distension, nausea, vomiting, diarrhea, constipation MUSCULOSKELETAL: Absent: myalgia, arthralgia, joint swelling, back pain, neck pain PHYSICAL EXAM: GENERAL: Awake, alert, and fully oriented, in no acute distress. HEAD: Normal with no signs of trauma. EYES: PERRL, sclera anicteric, conjunctiva clear. NECK: Normal ROM, LUNGS: breathing comfortably, No accessory muscle use. MUSCULOSKELETAL: Normal ROM at all joints. No bony deformities or tenderness. LOWER EXTREMITIES: 1+ pulses, warm, well-perfused. LE edema RT > LT, venous dermatitis on RLE anterior slade, erythema on shins b/l NEUROLOGICAL: Normal speech, gait not observed. PSYCH: Cooperative. Good eye contact. Appropriate mood and affect. SKIN: Warm, dry, normal turgor, no rashes or lesions noted. Vital Signs Temperature 97.9 F 06/06/19 05:50 Pulse Rate 85 06/06/19 05:50 Respiratory Rate 20 06/06/19 05:50 Blood Pressure 108/67 06/06/19 05:50 O2 Sat by Pulse Oximetry (%) 99 06/05/19 23:00 Lab Results WBC 5.4 K/mm3 (4.0-10.0) 06/06/19 06:12 RBC 3.51 M/mm3 (4.00-5.60) L 06/06/19 06:12 Hgb 11.2 GM/dL (11.7-16.9) L 06/06/19 06:12 Hct 32.5 % (35.4-49) L D 06/06/19 06:12 MCV 92.6 fl (80-96) 06/06/19 06:12 MCHC 34.5 g/dl (32.0-35.9) 06/06/19 06:12 RDW 15.4 % (11.9-15.9) 06/06/19 06:12 Plt Count 173 K/MM3 (134-434) D 06/06/19 06:12 Sodium 143 mmol/L (136-145) 06/06/19 06:12 Potassium 4.6 mmol/L (3.5-5.1) 06/06/19 06:12 Chloride 108 mmol/L (98-107) H 06/06/19 06:12 Carbon Dioxide 29 mmol/L (21-32) 06/06/19 06:12 Anion Gap 5 MMOL/L (8-16) L 06/06/19 06:12 BUN 42.7 mg/dL (7-18) H 06/06/19 06:12 Creatinine 2.9 mg/dL (0.55-1.3) H 06/06/19 06:12 Random Glucose 84 mg/dL (74-106) 06/06/19 06:12 Calcium 8.9 mg/dL (8.5-10.1) 06/06/19 06:12 INR 1.69 (0.83-1.09) H 06/05/19 18:00 Problem List - Problems (1) Cellulitis Assessment/Plan: -continue abx as per Medicine/ID -f/up venous duplex r/o DVT RLE Code(s): L03.90 - CELLULITIS, UNSPECIFIED Qualifiers: Site of cellulitis: extremity Site of cellulitis of extremity: lower extremity Laterality: right Qualified Code(s): L03.115 - Cellulitis of right lower limb (2) Venous stasis dermatitis of both lower extremities Assessment/Plan: -compression dressing to RLE once cellulitis has cleared. -follow up with wound care clinic as outpatient Pt discussed with Dr. Greer who agrees with plan, please contact if any changes. Code(s): I87.2 - VENOUS INSUFFICIENCY (CHRONIC) (PERIPHERAL)
[2019-06-06 09:41] LABS: ERYTHROCYTE SEDIMENTATION RATE 43 mm/hr (0-20)
[2019-06-06] MEDS ORDERED: TORSEMIDE 20 MG TABLET (FP) PO SCH (10:00)
[2019-06-06] MEDS ORDERED: CEFTRIAXONE 1 GM in DEXTROSE 5%-WATER - 50 ML IVPB SCH (10:00)
--- NOTE | 2019-06-06 11:03 | ECHO ---
Name: ANDREEAJENI Exam:Adult Echocardiogram Study Date: 06/06/2019 07:36 AM Age: 74 yrs Reason For Study: CHF Height: 73 in Weight: 208 lb BSA: 2.2 m2 MMode/2D Measurements & Calculations IVSd: 1.2 cm Ao root diam: 3.6 cm LVIDd: 4.6 cm LA dimension: 2.8 cm LVIDs: 2.5 cm LVPWd: 1.2 cm EDV(Teich): 99.5 ml LVOT diam: 2.0 cm ESV(Teich): 22.3 ml LAV (MOD-bp): 114.0 ml Doppler Measurements & Calculations MV E max hua: 133.0 cm/sec Ao V2 max: 382.0 cm/sec MV dec time: 0.24 sec Ao max P.6 mmHg Ao V2 mean: 282.6 cm/sec Ao mean P.7 mmHg Ao V2 VTI: 76.0 cm DAVION(I,D): 0.47 cm2 AI P1/2t: 522.5 msec DAVION(V,D): 0.62 cm2 AI max hua: 253.9 cm/sec LV V1 max P.3 mmHg AI max P.8 mmHg LV V1 mean P.3 mmHg AI dec slope: 142.3 cm/sec2 LV V1 max: 76.2 cm/sec LV V1 mean: 50.0 cm/sec LV V1 VTI: 11.4 cm MR max hua: 369.2 cm/sec SV(LVOT): 35.5 ml MR max P.5 mmHg TR max hua: 296.6 cm/sec PA V2 max: 126.2 cm/sec TR max P.2 mmHg PA max P.4 mmHg Lat Peak E' Hua: 10.7 cm/sec PI Vmax: 184.6 cm/sec Lat E/e': 12.4 Left Ventricle Ejection Fraction = 50-55%. Right Ventricle The right ventricle is grossly normal size. The right ventricular systolic function is grossly normal . Atria The left atrium is mildly dilated. Borderline right atrial enlargement. Mitral Valve There is mild mitral valve thickening. There is no mitral valve stenosis. There is mild mitral regurg itation. Tricuspid Valve The tricuspid valve is normal in structure and function. There is mild tricuspid regurgitation. Right ventricular systolic pressure is elevated at 30-40mmHg. Aortic Valve The aortic valve is severely thickened with restricted leaflet opening. Probably at least moderate ao rtic stenosis, possibly severe. The obtained aortic valve mean gradients indicate moderate to severe bu t are limited due to poor doppler envelope. Mild aortic regurgitation. Pulmonic Valve The pulmonic valve is not well seen, but is grossly normal. There is no pulmonic valvular stenosis. M ild pulmonic valvular regurgitation. Great Vessels The aortic root is normal size. Pericardium/Pleura There is no pericardial effusion. Interpretation Summary The aortic valve is severely thickened with restricted leaflet opening. Probably at least moderate ao rtic stenosis, possibly severe. The obtained aortic valve mean gradients indicate moderate to severe bu t are limited due to poor doppler envelope. Ejection Fraction = 50-55%. The left atrium is mildly dilated. There is mild mitral valve thickening. There is mild mitral regurgitation. There is mild tricuspid regurgitation. Right ventricular systolic pressure is elevated at 30-40mmHg. There is no pericardial effusion. MD Monroe *Arnie 06/06/2019 11:02 AM
[2019-06-06] MEDS ORDERED: cefTRIAXone SODIUM 1 GM VIAL ONE (11:21)
[2019-06-06] MEDS ORDERED: DEXTROSE 5%-WATER - 50 ML IVPB ONE ×4 (11:21→23:59)
[2019-06-06] MEDS: APIXABAN 5 MG TABLET PO SCH ×2 (11:29→21:20)
--- NOTE | 2019-06-06 11:33 | CON.ID ---
Consult Consult Specialty:: infectius diseases Referred by:: Hospitalist service Reason for Consultation:: rt leg cellulitis - History of Present Illness Chief Complaint: swelling of the rt leg and erythema History of Present Illness: 74 year old male with past medical history of Afib (on Eliquis), HTN, CHF and chronic venous insufficiency, presented to the ED from wound care clinic due to worsening right lower leg edema and redness for 1 week. Patient has history of bilateral venous dermatitis with excoriations for more than a year and follows up at the wound care clinic. For about a week, patient reported worsening of the right leg swelling and redness but denies any pain. He followed up at the wound care clinic and was sent down to the ED for further management. Patient denies any fever, chills, headache, dizziness, nausea, vomiting, chest pain, SOB , abdominal pain, diarrhea, urinary symptoms. patient mentions that his swelling and redness has not just gone away. also mentons that he might have scratched his legs quite some time - History Source History Provided By: Patient Limitations to Obtaining History: No Limitations - Past Medical History Cardio/Vascular: Yes: AFIB, HTN - Alcohol/Substance Use Hx Alcohol Use: No - Smoking History Smoking history: Never smoked Have you smoked in the past 12 months: No Home Medications - Allergies Allergies/Adverse Reactions: Allergies Allergy/AdvReac Type Severity Reaction Status Date / Time No Known Allergies Allergy Verified 06/05/19 15:36 - Home Medications Home Medications: Ambulatory Orders Losartan Potassium 1 tab PO DAILY 03/05/17 Metoprolol Succinate [Toprol Xl] 200 mg PO DAILY 03/05/17 Cholecalciferol (Vitamin D3) [Vitamin D3] 10,000 unit PO DAILY 07/25/18 Torsemide 20 mg PO DAILY 07/25/18 Apixaban [Eliquis -] 5 mg PO BID 06/05/19 Review of Systems - Review of Systems Constitutional: reports: No Symptoms Eyes: reports: No Symptoms HENT: reports: No Symptoms Neck: reports: No Symptoms Cardiovascular: reports: No Symptoms Respiratory: reports: No Symptoms Gastrointestinal: reports: No Symptoms Genitourinary: reports: No Symptoms Musculoskeletal: reports: Other Integumentary: reports: Erythema, Wound, Other Neurological: reports: No Symptoms Endocrine: reports: No Symptoms Hematology/Lymphatic: reports: No Symptoms Psychiatric: reports: No Symptoms Physical Exam Vital Signs: Vital Signs Temperature 97.5 F L 06/06/19 11:22 Pulse Rate 97 H 06/06/19 11:22 Respiratory Rate 20 06/06/19 11:22 Blood Pressure 91/49 L 06/06/19 11:22 O2 Sat by Pulse Oximetry (%) 99 06/05/19 23:00 Constitutional: Yes: No Distress, Calm HENT: Yes: Atraumatic Neck: Yes: Supple, Trachea Midline Cardiovascular: Yes: Pulse Irregular Respiratory: Yes: Regular, CTA Bilaterally Gastrointestinal: Yes: Normal Bowel Sounds, Soft Musculoskeletal: Yes: WNL Extremities: Yes: Erythema, Other Wound/Incision: Yes: Dressing Removed, Other (erythema of the leg,redness, scratch rocha) Labs: CBC, BMP 06/06/19 06:12 06/06/19 06:12 Imaging - Results X-ray: Report Reviewed, Image Reviewed Ultrasound: Report Reviewed, Image Reviewed Assessment/Plan 74 year old male with past medical history of Afib (on Eliquis), HTN, CHF and chronic venous insufficiency, presented to the ED from wound care clinic due to worsening right lower leg edema and redness RLE cellulitis HENOK on CKD Elevated T bili/Alk phos Atrial fibrillation htn plan will change abx to zosyn await for all blood cx elevation of the leg rest as per the team
[2019-06-06] MEDS ORDERED: PIPERACILLIN/TAZOBACTAM 2.25 GM VIAL IVPB ONE ×3 (12:10→23:58)
[2019-06-06] MEDS: PIPERACILLIN/TAZOB 2.25 GM 2.25 GM in DEXTROSE 5%-WATER - 50 ML IVPB SCH ×2 (12:12→17:27)
--- NOTE | 2019-06-06 14:06 | EKG ---
Test Reason : Blood Pressure : / mmHG Vent. Rate : 111 BPM Atrial Rate : 108 BPM P-R Int : 000 ms QRS Dur : 084 ms QT Int : 312 ms P-R-T Axes : 000 007 097 degrees QTc Int : 424 ms ATRIAL FIBRILLATION WITH RAPID VENTRICULAR RESPONSE NONSPECIFIC ST ABNORMALITY ABNORMAL ECG Confirmed by SKINNY LOPEZ MD ([id number]) on 06/06/2019 2:06:11 PM Referred By: Confirmed By:SKINNY LOPEZ MD
[2019-06-06] MEDS ORDERED: SODIUM CHLORIDE 1,000 ML IV SCH (14:15)
[2019-06-06] MEDS ORDERED: SODIUM CHLORIDE 250 ML IV STA (14:19)
[2019-06-06] MEDS ORDERED: ACETAMINOPHEN 650 MG/20.3 ML ORAL SOLUTION (CUPS) PO PRN (16:22)
[2019-06-06] MEDS: ACETAMINOPHEN 650 MG/20.3 ML ORAL SOLUTION (CUPS) PO PRN (17:26)
[2019-06-07] MEDS: PIPERACILLIN/TAZOB 2.25 GM 2.25 GM in DEXTROSE 5%-WATER - 50 ML IVPB SCH ×3 (02:15→18:12)
--- NOTE | 2019-06-07 09:42 | PN ---
Progress Note, Physician History of Present Illness: looking better leg improving swelling less redness improving - Current Medication List Current Medications: Active Medications Acetaminophen (Tylenol Oral Solution -) 650 mg PO Q6H PRN PRN Reason: PAIN LEVEL 1-5 Last Admin: 06/06/19 17:26 Dose: 650 mg Apixaban (Eliquis -) 5 mg PO BID [facility] Last Admin: 06/06/19 21:20 Dose: 5 mg Piperacillin Sod/Tazobactam (Sod 2.25 gm/ Dextrose) 50 mls @ 100 mls/hr IVPB Q8H-IV NALDO; Protocol Last Admin: 06/07/19 02:15 Dose: 100 mls/hr Sodium Chloride (Normal Saline -) 1,000 mls @ 50 mls/hr IV ASDIR NALDO Stop: 06/07/19 14:08 Last Admin: 06/06/19 14:24 Dose: 50 mls/hr Metoprolol Succinate (Toprol Xl -) 200 mg PO DAILY [facility] Last Admin: 06/06/19 11:29 Dose: Not Given - Objective Vital Signs: Vital Signs Temperature 97.7 F 06/07/19 06:00 Pulse Rate 81 06/07/19 06:00 Respiratory Rate 18 06/07/19 06:00 Blood Pressure 116/59 L 06/07/19 06:00 O2 Sat by Pulse Oximetry (%) 98 06/06/19 21:00 Constitutional: Yes: No Distress, Calm Cardiovascular: Yes: S1, S2 Respiratory: Yes: Regular, CTA Bilaterally Gastrointestinal: Yes: Normal Bowel Sounds, Soft Musculoskeletal: Yes: WNL Extremities: Yes: Other Integumentary: Yes: Erythema (of the left foot improving) Neurological: Yes: Alert, Oriented Psychiatric: Yes: Alert, Oriented Labs: CBC, BMP 06/06/19 06:12 06/06/19 06:12 INR, PTT INR 1.69 (0.83-1.09) H 06/05/19 18:00 Assessment/Plan 74 year old male with past medical history of Afib (on Eliquis), HTN, CHF and chronic venous insufficiency, presented to the ED from wound care clinic due to worsening right lower leg edema and redness RLE cellulitis HENOK on CKD Elevated T bili/Alk phos Atrial fibrillation htn plan ct abx elevation of the leg rest as per the team
[2019-06-07] MEDS ORDERED: PIPERACILLIN/TAZOBACTAM 2.25 GM VIAL IVPB ONE ×2 (10:23→17:52)
[2019-06-07] MEDS ORDERED: DEXTROSE 5%-WATER - 50 ML IVPB ONE ×2 (10:24→17:52)
[2019-06-07 10:32] LABS: BASO % 0.7 % (0-2.0); EOS % 18.1 % (0-4.5); HEMATOCRIT 32.3 % (35.4-49); HEMOGLOBIN 11.1 GM/dL (11.7-16.9); LYMPH % 14.2 % (8-40); MCH 31.8 pg (25.7-33.7); MCHC 34.4 g/dl (32.0-35.9); MEAN CELL VOLUME 92.3 fl (80-96); MONO % 10.1 % (3.8-10.2); NEUT % 56.9 % (42.8-82.8); PLATELET COUNT 177 K/MM3 (134-434); RDW 15.7 % (11.9-15.9); WHITE BLOOD COUNT 5.3 K/mm3 (4.0-10.0)
[2019-06-07 10:54] LABS: ALBUMIN 2.7 g/dl (3.4-5.0); BILIRUBIN,TOTAL 0.9 mg/dL (0.2-1); BLOOD UREA NITROGEN 31.5 mg/dL (7-18); CALCIUM 8.6 mg/dL (8.5-10.1); CREATININE 2.3 mg/dL (0.55-1.3); POTASSIUM 4.2 mmol/L (3.5-5.1); TOT PROT 6.1 g/dl (6.4-8.2)
[2019-06-07] MEDS: ACETAMINOPHEN 650 MG/20.3 ML ORAL SOLUTION (CUPS) PO PRN ×2 (11:25→18:11)
[2019-06-07] MEDS: APIXABAN 5 MG TABLET PO SCH ×2 (11:25→21:37)
--- NOTE | 2019-06-07 12:33 | PN ---
Physical Exam: SUBJECTIVE: Patient seen and examined; mild tachycardia last night noted. He states he got his PO metoprolol, EKG pending. Irregular and 90s-low 100s on palpation. Stable hemodynamics otherwise. No new complaints. He percieves his presenting symptoms as improving, stating less weeping. Discussed with ID. Monitoring him on the floor with subspecialty services following (ID, vascular ). Echo reviewed and moderate to severe aortic findings noted; no prior visits with CV in our system. Baseline Cr was high 1s; this could represent organic worsening vs. CKD. As abdominal US shows a R-pleural effusion and I was unable to locate a CXR from admission (appears was not completed), I need to r/o any underlying CHF (could be related to rate vs. valve). Consulting cardiology and nephrology (though Cr improved would be helpful if he requires ongoing diuresis) . He did get his AM metoprolol late; still tachy around 330 so moving to telemetry. OBJECTIVE: Vital Signs Period Temp Pulse Resp BP Sys/Whelan Pulse Ox Last 24 Hr 97.3 F-98.4 F 81-116 18-20 91-128/51-79 98 GENERAL: The patient is awake, alert, and fully oriented, in no acute distress. HEAD: Normal with no signs of trauma. EYES: PERRL, extraocular movements intact, sclera anicteric, conjunctiva clear. No ptosis. ENT: Ears normal, nares patent, oropharynx clear without exudates, moist mucous membranes. NECK: Trachea midline, full range of motion, supple. LUNGS: Breath sounds equal, clear to auscultation bilaterally, no wheezes, no crackles, no accessory muscle use. HEART: I, S1, S2 without murmur, rub or gallop. ABDOMEN: Soft, nontender, nondistended, normoactive bowel sounds EXTREMITIES: 2+ pulses, warm, b/l redness with R>>L, slightly improved on R- side with weeping and associated edema consistent with cellulitic changes. NEUROLOGICAL: Cranial nerves II through XII grossly intact. Normal speech, gait not observed. PSYCH: Normal mood, normal affect. SKIN: Warm, dry, normal turgor, no rashes or lesions noted Laboratory Results - last 24 hr 06/07/19 06/07/19 09:51 09:51 WBC 5.3 RBC 3.50 L Hgb 11.1 L Hct 32.3 L MCV 92.3 MCH 31.8 MCHC 34.4 RDW 15.7 Plt Count 177 MPV 8.0 Absolute Neuts (auto) 3.0 Neutrophils % 56.9 Lymphocytes % 14.2 Monocytes % 10.1 Eosinophils % 18.1 H Basophils % 0.7 Nucleated RBC % 0 Sodium 142 Potassium 4.2 Chloride 106 Carbon Dioxide 27 Anion Gap 8 BUN 31.5 H Creatinine 2.3 H Est GFR (CKD-EPI)AfAm 31.47 Est GFR (CKD-EPI)NonAf 27.16 Random Glucose 106 Calcium 8.6 Total Bilirubin 0.9 AST 20 ALT 24 Alkaline Phosphatase 96 Total Protein 6.1 L Albumin 2.7 L Active Medications Generic Name Dose Route Start Last Admin Trade Name Freq PRN Reason Stop Dose Admin Acetaminophen 650 mg 06/06/19 16:36 06/07/19 11:25 Tylenol Oral Solution - PO 650 mg Q6H PRN Administration PAIN LEVEL 1-5 Apixaban 5 mg 06/06/19 10:00 06/07/19 11:25 Eliquis - PO 5 mg BID NALDO Administration Piperacillin Sod/Tazobactam 50 mls @ 100 mls/hr 06/06/19 12:15 06/07/19 11:25 Sod 2.25 gm/ Dextrose IVPB 100 mls/hr Q8H-IV NALDO Administration Protocol Sodium Chloride 1,000 mls @ 50 mls/hr 06/06/19 14:15 06/06/19 14:24 Normal Saline - IV 06/07/19 14:08 50 mls/hr ASDIR NALDO Administration Metoprolol Succinate 200 mg 06/06/19 10:00 06/07/19 11:25 Toprol Xl - PO 200 mg DAILY NALDO Administration EKG pending review; ordered Venous US reviewed Vascular and ID consults reviewed ASSESSMENT/PLAN: Patient presents for LE cellulitis (RLE with b/l vascular changes) found to be relatively asymptomatic with known for which he follows with an outside physician. He is tachycardic >100 today on high dose MT (200 daily) and is found to have an elevated BNP with known renal impairment. Will clear with cardiology but should be stable to stay on telemetry. He was noted to have eosiniphilia on admission with it worsening today. Will check IgE, strongyloides, and if worsens consult hematology. Noted that prior value in EMR is wnl. Problems include: # LE Cellulitis (Stable; ID following. Appreciate expert consultation. Deferring abx to their service; monitor CBC, ESR, CRP. Underlying PAD complicates wound healing) # PAD (Noted vascular sgy input; will followup. +pulses on exam today) # Peripheral eosinophilia (IgE, strongyloides pending. Worsened today so consulted Dr. Doran; appreciate expert opinion) # Severe , known (given high dose metoprolol with tachycardia, etc. consulting CV to ensure no medication adjustments need to be made in the immediate future. He follows with outside weed eradicator. Does not appear to be planning for TAVR but would like to confirm with old records) # Tachycardia (Per above, continue home metoprolol) # CKD (Baseline last year ~1.8 and is now 2.3 12 months later likely representing organic worsening which would be expected. Ensure renal followup on DC and if worsens or develops electrolyte abberancies can consult nephrology. Monitor UOP and QD BMP) Visit type - Emergency Visit Emergency Visit: No - New Patient This patient is new to me today: No - Critical Care Critical Care patient: No
[2019-06-07 15:58] LABS: N-TERMINAL BNP 7768.1 pg/ml (5-125)
[2019-06-08] MEDS ORDERED: PIPERACILLIN/TAZOBACTAM 2.25 GM VIAL IVPB ONE ×3 (02:32→18:54)
[2019-06-08] MEDS ORDERED: DEXTROSE 5%-WATER - 50 ML IVPB ONE ×3 (02:32→18:54)
[2019-06-08] MEDS: PIPERACILLIN/TAZOB 2.25 GM 2.25 GM in DEXTROSE 5%-WATER - 50 ML IVPB SCH ×3 (02:37→18:56)
[2019-06-08 08:12] LABS: BASO % 0.9 % (0-2.0); HEMATOCRIT 33.3 % (35.4-49); HEMOGLOBIN 11.5 GM/dL (11.7-16.9); LYMPH % 16.6 % (8-40); MCH 32.2 pg (25.7-33.7); MCHC 34.4 g/dl (32.0-35.9); MEAN CELL VOLUME 93.7 fl (80-96); MEAN PLT VOLUME 8.1 fl (7.5-11.1); MONO % 9.9 % (3.8-10.2); NEUT % 49.6 % (42.8-82.8); PLATELET COUNT 178 K/MM3 (134-434); RBC 3.55 M/mm3 (4.00-5.60); RDW 15.5 % (11.9-15.9); WHITE BLOOD COUNT 5.4 K/mm3 (4.0-10.0)
[2019-06-08 08:37] LABS: ALBUMIN 2.6 g/dl (3.4-5.0); BILIRUBIN,TOTAL 0.9 mg/dL (0.2-1); BLOOD UREA NITROGEN 25.4 mg/dL (7-18); CALCIUM 8.5 mg/dL (8.5-10.1); CREATININE 2.3 mg/dL (0.55-1.3); MAGNESIUM 2.2 mg/dL (1.8-2.4); POTASSIUM 4.4 mmol/L (3.5-5.1); TOT PROT 5.9 g/dl (6.4-8.2)
[2019-06-08 09:55] VITALS: BMI 27.8
--- NOTE | 2019-06-08 09:55 | CON.NEP ---
Consult Consult Specialty:: nephrology - History of Present Illness Chief Complaint: leg edema, infection History of Present Illness: Patient is a 74 year old male with past medical history of Afib (on Eliquis), HTN, CHF and chronic venous insufficiency, presented to the ED from wound care clinic due to worsening right lower leg edema and redness for 1 week. Patient has history of bilateral venous dermatitis with excoriations for more than a year and follows up at the wound care clinic. For about a week, patient reported worsening of the right leg swelling and redness but denies any pain. He followed up at the wound care clinic and was sent down to the ED for further management. Patient denies any fever, chills, headache, dizziness, nausea, vomiting, chest pain, SOB, abdominal pain, diarrhea, urinary symptoms. He was very edematous and has been on diuretics ( he remembers torsemide). Has no trouble urinating. No foamy urine - History Source History Provided By: Patient, Medical Record Limitations to Obtaining History: No Limitations - Past Medical History Cardio/Vascular: Yes: AFIB, HTN - Alcohol/Substance Use Hx Alcohol Use: No - Smoking History Smoking history: Never smoked Have you smoked in the past 12 months: No Home Medications - Allergies Allergies/Adverse Reactions: Allergies Allergy/AdvReac Type Severity Reaction Status Date / Time No Known Allergies Allergy Verified 06/05/19 15:36 - Home Medications Home Medications: Ambulatory Orders Losartan Potassium 1 tab PO DAILY 03/05/17 Metoprolol Succinate [Toprol Xl] 200 mg PO DAILY 03/05/17 Cholecalciferol (Vitamin D3) [Vitamin D3] 10,000 unit PO DAILY 07/25/18 Torsemide 20 mg PO DAILY 07/25/18 Apixaban [Eliquis -] 5 mg PO BID 06/05/19 Review of Systems - Review of Systems Constitutional: reports: No Symptoms Eyes: reports: No Symptoms HENT: reports: No Symptoms Neck: reports: No Symptoms Cardiovascular: reports: No Symptoms Respiratory: reports: No Symptoms Gastrointestinal: reports: No Symptoms Genitourinary: reports: No Symptoms Breasts: reports: No Symptoms Reported Musculoskeletal: reports: No Symptoms Integumentary: reports: Change in Color, Erythema Neurological: reports: No Symptoms Endocrine: reports: No Symptoms Hematology/Lymphatic: reports: No Symptoms Psychiatric: reports: No Symptoms Nephrology Consult - Height Height: 6 ft 1 in - Weight Weight: 211 lb 6.4 oz - BMI Body Mass Index (BMI): 27.8 - Lab Results CBC,BMP: CBC, BMP 06/08/19 07:30 06/08/19 07:30 Anion Gap: Anion Gap Anion Gap 7 MMOL/L (8-16) L 06/08/19 07:30 - Imaging Chest X-ray: Report Reviewed Ultrasound: Report Reviewed (normal appearing kidneys) - Physical Examination Vital Signs: Vital Signs Temperature 97.7 F 06/08/19 05:00 Pulse Rate 90 06/08/19 05:00 Respiratory Rate 20 06/07/19 18:00 Blood Pressure 140/78 06/08/19 05:00 O2 Sat by Pulse Oximetry (%) 98 06/07/19 22:09 Constitutional: Yes: Well Nourished, No Distress, Calm Eyes: Yes: Conjunctiva Clear HENT: Yes: Atraumatic, Normocephalic Neck: Yes: Supple, Trachea Midline Cardiovascular: Yes: Pulse Irregular, Murmur Respiratory: Yes: Regular, Diminished Gastrointestinal: Yes: Normal Bowel Sounds Renal/: Yes: WNL Extremities: Yes: Erythema Edema: Yes Edema: LLE: 1+, RLE: 1+ Integumentary: Yes: Erythema, Rash, Venous Stasis Changes Neurological: Yes: Alert, Oriented Assessment/Plan IMPRESSION HENOK appears to have improved by holding diuretics He was on torsemide and says he had weeping from his legs but he is much less swollen now and no weeping Has CKD with subnephrotic proteinuria fractional excretion of urea is high and not consistent with a prerenal state rising peripheral eosinophilia may have AIN though doubt PLAN avoid nephrotoxins trend creatinine check eosinophils in urine urinalysis MV
[2019-06-08] MEDS: ACETAMINOPHEN 650 MG/20.3 ML ORAL SOLUTION (CUPS) PO PRN ×2 (10:42→18:56)
[2019-06-08] MEDS: APIXABAN 5 MG TABLET PO SCH ×2 (10:42→21:48)
[2019-06-08 12:01] LABS: ANISOCYTOSIS 0; HELMET CELLS 0; HOWELL-JOLLY BODIES 0; MACROCYTOSIS 0; OVALOCYTE 0; PLATELET ESTIMATE NORMAL; ROULEAU 0; SICKELED CELLS 0; TARGET CELLS 0; TEAR DROP CELLS 0; TOXIC GRANULATION 0
--- NOTE | 2019-06-08 13:50 | PN ---
Progress Note, Physician History of Present Illness: looking better leg improving swelling less redness improving - Current Medication List Current Medications: Active Medications Acetaminophen (Tylenol Oral Solution -) 650 mg PO Q6H PRN PRN Reason: PAIN LEVEL 1-5 Last Admin: 06/08/19 10:42 Dose: 650 mg Apixaban (Eliquis -) 5 mg PO BID N[facility]DO Last Admin: 06/08/19 10:42 Dose: 5 mg Piperacillin Sod/Tazobactam (Sod 2.25 gm/ Dextrose) 50 mls @ 100 mls/hr IVPB Q8H-IV NALDO; Protocol Last Admin: 06/08/19 10:42 Dose: 100 mls/hr Metoprolol Succinate (Toprol Xl -) 200 mg PO DAILY [facility] Last Admin: 06/08/19 10:42 Dose: 200 mg - Objective Vital Signs: Vital Signs Temperature 98.1 F 06/08/19 13:21 Pulse Rate 94 H 06/08/19 13:21 Respiratory Rate 18 06/08/19 13:21 Blood Pressure 113/73 06/08/19 13:21 O2 Sat by Pulse Oximetry (%) 96 06/08/19 09:00 Constitutional: Yes: No Distress, Calm Cardiovascular: Yes: S1, S2 Respiratory: Yes: Regular, CTA Bilaterally Gastrointestinal: Yes: Normal Bowel Sounds, Soft Musculoskeletal: Yes: Other Extremities: Yes: Erythema (improving) Neurological: Yes: Alert, Oriented Psychiatric: Yes: Alert, Oriented Labs: CBC, BMP 06/08/19 07:30 06/08/19 07:30 INR, PTT INR 1.69 (0.83-1.09) H 06/05/19 18:00 Assessment/Plan 74 year old male with past medical history of Afib (on Eliquis), HTN, CHF and chronic venous insufficiency, presented to the ED from wound care clinic due to worsening right lower leg edema and redness RLE cellulitis HENOK on CKD Elevated T bili/Alk phos Atrial fibrillation htn plan ct abx elevation of the leg rest as per the team
--- NOTE | 2019-06-08 15:29 | CON.CARD ---
Consult Consult Specialty:: Cardiology Referred by:: Hospitalist Reason for Consultation:: aortic stenosis, pleural effusion - History of Present Illness Chief Complaint: LE cellulitis History of Present Illness: 74 year old man with a pmh HTN, Afib on eliquis, known Aortic stenosis followed closely by Dr. Luz, chronic venous insufficiency admitted with RLE cellulitis. pt was noted to have a pleural effusion and mild tachycardia. an echo on 06/06 showed mod to sev , normal LVEF pt seen and examined today in nad. states he is feeling better overall. states he is aware of his aortic stenosis and saw Dr. Luz 1 month ago. He was told that his is stable currently and it can be watched. he denies any chest pain, sob, palpitations, pnd, orthopnea. states his LE cellulitis is improving. - History Source History Provided By: Patient, Medical Record Limitations to Obtaining History: No Limitations - Past Medical History Cardio/Vascular: Yes: AFIB, Aortic Stenosis, HTN - Alcohol/Substance Use Hx Alcohol Use: No - Smoking History Smoking history: Never smoked Have you smoked in the past 12 months: No Home Medications - Allergies Allergies/Adverse Reactions: Allergies Allergy/AdvReac Type Severity Reaction Status Date / Time No Known Allergies Allergy Verified 06/05/19 15:36 - Home Medications Home Medications: Ambulatory Orders Losartan Potassium 1 tab PO DAILY 03/05/17 Metoprolol Succinate [Toprol Xl] 200 mg PO DAILY 03/05/17 Cholecalciferol (Vitamin D3) [Vitamin D3] 10,000 unit PO DAILY 07/25/18 Torsemide 20 mg PO DAILY 07/25/18 Apixaban [Eliquis -] 5 mg PO BID 06/05/19 Family Disease History - Family Disease History Family History: Denies Review of Systems - Review of Systems Constitutional: denies: No Symptoms, Chills, Diaphoresis, Fever, Lethargy, Loss of Appetite, Malaise, Night Sweats, Unintentional Wgt. Loss, Weakness, Other Eyes: denies: No Symptoms, Blind Spots, Blurred Vision, Double Vision, Eye Pain , Floaters, Photophobia, Recent Change in Vision, Other HENT: denies: No Symptoms, Difficult Swallowing, Ear Discharge, Ear Pain, Epistaxis, Gingival Bleeding, Hearing Loss, Mouth Swelling, Nasal Congestion, Ocular Prosthesis, Throat Pain, Toothache, Ringing in Ears, Other Neck: denies: No Symptoms, Decreased ROM, Lumps, Pain on Movement, Stiffness, Swollen Glands, Tenderness, Other Cardiovascular: reports: Edema. denies: No Symptoms, Chest Pain, Palpitations, Shortness of Breath, Other Respiratory: denies: No Symptoms, Cough, Exercise Intolerance, Hemoptysis, Orthopnea, PND, Snoring, SOB, SOB on Exertion, Wheezing, Other Gastrointestinal: denies: No Symptoms, Abdominal Pain, Bloating, Constipation, Diarrhea, Dysphagia, Indigestion, Melena, Nausea, Rectal Bleeding, Vomiting, Vomiting Blood, Other Genitourinary: denies: No Symptoms, Burning, Discharge, Dysuria, Flank Pain, Frequency, Hematuria, Incontinence, Lesions, Menses, Pain, Testicular Mass, Testicular Pain, Testicular Swelling, Urgency, Vaginal Bleeding, Other Breasts: denies: No Symptoms Reported, See HPI, Breast Implants, Discharge from Nipple, Lumps, Pain, Skin Changes, Other Musculoskeletal: denies: No Symptoms, Back Pain, Crepitus, Decreased ROM, Extremity Pain, Joint Pain, Joint Swelling, Muscle Pain, Muscle Cramps, Muscle Weakness, Other Integumentary: denies: No Symptoms, Blister, Bruising, Change in Color, Eczema, Erythema, Incision, Lesions, Lump, Pallor, Pruritis, Rash, Wound, Other Neurological: denies: No Symptoms, Change in LOC, Change in Speech, Confusion, Dizziness, Headache, Incoordination, Numbness, Parasthesia, Pre-Existing Deficit , Seizure, Syncope, Tremors, Unsteady Gait, Weakness, Other Endocrine: denies: No Symptoms, Excessive Sweating, Flushing, Increased Hunger, Increased Thirst, Intolerance to Cold, Intolerance to Heat, Unexplained Weight Gain, Unexplained Weight Loss, Other Hematology/Lymphatic: denies: No Symptoms, Easily Bruised, Excessive Bleeding, Swollen Glands, Other Psychiatric: denies: No Symptoms, Altered Sleep Pattern, Anxiety, Depression, Hallucinations, Panic, Paranoia, Suicidal, Other Vital Signs: Vital Signs Temperature 98.1 F 06/08/19 13:21 Pulse Rate 94 H 06/08/19 13:21 Respiratory Rate 18 06/08/19 13:21 Blood Pressure 113/73 06/08/19 13:21 O2 Sat by Pulse Oximetry (%) 96 06/08/19 09:00 Constitutional: Yes: No Distress, Calm Eyes: Yes: Conjunctiva Clear, EOM Intact, PERRL HENT: Yes: Atraumatic, Normocephalic Neck: Yes: Supple, Trachea Midline Respiratory: Yes: Regular, CTA Bilaterally. No: Rales, Rhonchi, SOB, Wheezes Gastrointestinal: Yes: Normal Bowel Sounds, Soft. No: Distention, Tenderness Cardiovascular: Yes: Regular Rate and Rhythm. No: Bradycardia, Tachycardia, Pulse Irregular, Gallop, Rub, Varicosities JVD: No Carotid Bruit: No PMI: Non-Displaced Heart Sounds: Yes: S1, S2. No: Split S2, S3, S4, Clicks, Gallop, Rub, Bruit Murmur: Yes: Systolic Murmur, Grade 3 Edema: Yes Edema: LLE: 1+, RLE: 2+ Peripheral Pulses WNL: Yes Neurological: Yes: Alert, Oriented Psychiatric: Yes: Alert, Oriented - Other Data Labs, Other Data: CBC, BMP 06/08/19 07:30 06/08/19 07:30 INR, PTT INR 1.69 (0.83-1.09) H 06/05/19 18:00 Troponin, BNP 06/07/19 09:51 B-Natriuretic Peptide 7768.1 H Troponin, BNP 06/07/19 09:51 B-Natriuretic Peptide 7768.1 H ekg 06/05 afib 11bpm Echo: Report Reviewed Imaging - Results Chest X-ray: Report Reviewed, Image Reviewed EKG: Report Reviewed, Image Reviewed Other: Report Reviewed, Image Reviewed Assessment/Plan 74 year old man with a pmh HTN, Afib on eliquis, known Aortic stenosis followed closely by Dr. Luz, chronic venous insufficiency admitted with RLE cellulitis. pt was noted to have a pleural effusion and mild tachycardia. an echo on 06/06 showed mod to sev , normal LVEF states he is feeling better overall. states he is aware of his aortic stenosis and saw Dr. Luz 1 month ago. He was told that his is stable currently and it can be watched. he denies any chest pain, sob, palpitations, pnd, orthopnea. states his LE cellulitis is improving. Aortic stenosis-Mod to sev based on echo and exam -known and followed closely by his outpatient career orientation teacher Dr. Luz with whom he had an appointment 1 mo ago and a fup this week -no acute intervention is needed -he will fup with Dr. Luz on discharge CHF-chronic diastolic/valvular chf -was on torsemide as outpatient -DILSHAD on ckd noted on this admission and torsemide has been held -lungs are clear currently and no sob -can cont to hold torsemide and it can be re-evaluated as outpatient Afib-known chronic afib, HR mildly elevated -possibly driven by intravascular depletion -torsemide on hold -ok to adjust toprol to 100mg bid -cont eliquis will see as needed. please call with any additional questions.
[2019-06-08 16:01] LABS: PH,URINE 5.5 (5.0-8.0); URINE APPEARANCE CLEAR; URINE BILIRUBIN NEGATIVE (NEGATIVE); URINE COLOR YELLOW; URINE GLUCOSE (UA) NEGATIVE (NEGATIVE); URINE KETONE NEGATIVE (NEGATIVE); URINE LEUK ESTERASE NEGATIVE (NEGATIVE); URINE NITRITE NEGATIVE (NEGATIVE); URINE PROTEIN NEGATIVE (NEGATIVE)
--- NOTE | 2019-06-08 16:47 | EKG ---
Test Reason : Blood Pressure : / mmHG Vent. Rate : 095 BPM Atrial Rate : 111 BPM P-R Int : 000 ms QRS Dur : 094 ms QT Int : 370 ms P-R-T Axes : 000 -08 055 degrees QTc Int : 464 ms ATRIAL FIBRILLATION ABNORMAL ECG WHEN COMPARED WITH ECG OF 05-JUN-2019 20:42, NO SIGNIFICANT CHANGE WAS FOUND Confirmed by CARLOS HAQUE MD ([id number]) on 06/08/2019 4:47:43 PM Referred By: Confirmed By:CARLOS HAQUE MD
--- NOTE | 2019-06-08 21:06 | CONSULT ---
Consult Consult Specialty:: heme Referred by:: Dr. Lay Reason for Consultation:: eosinophilia - History of Present Illness Chief Complaint: r leg swelling History of Present Illness: 74M with AF on Eliquis, CHF, severe , CKD, venous insufficiency admitted with RLE cellulitis. On Abx. Ruled out for DVT. Also with acute on chronic renal failure, improving. Hematology consulted for eosinophilia. Eosinophils count was normal 1 year ago. On admission AEC ~800, up to 1,200 today. Denies SOB, wheezing, rash. Mild eosinophlia preceded Abx. - Past Medical History Cardio/Vascular: Yes: AFIB, Aortic Stenosis, HTN - Alcohol/Substance Use Hx Alcohol Use: No - Smoking History Smoking history: Never smoked Have you smoked in the past 12 months: No Home Medications - Allergies Allergies/Adverse Reactions: Allergies Allergy/AdvReac Type Severity Reaction Status Date / Time No Known Allergies Allergy Verified 06/05/19 15:36 - Home Medications Home Medications: Ambulatory Orders Losartan Potassium 1 tab PO DAILY 03/05/17 Metoprolol Succinate [Toprol Xl] 200 mg PO DAILY 03/05/17 Cholecalciferol (Vitamin D3) [Vitamin D3] 10,000 unit PO DAILY 07/25/18 Torsemide 20 mg PO DAILY 07/25/18 Apixaban [Eliquis -] 5 mg PO BID 06/05/19 Review of Systems - Review of Systems Constitutional: reports: No Symptoms Cardiovascular: reports: No Symptoms Respiratory: reports: No Symptoms Gastrointestinal: reports: No Symptoms. denies: Diarrhea Hematology/Lymphatic: reports: No Symptoms Physical Exam Vital Signs: Vital Signs Temperature 98 F 06/08/19 19:00 Pulse Rate 65 06/08/19 19:00 Respiratory Rate 18 06/08/19 19:00 Blood Pressure 135/73 06/08/19 19:00 O2 Sat by Pulse Oximetry (%) 96 06/08/19 09:00 Constitutional: Yes: No Distress Eyes: Yes: Conjunctiva Clear Cardiovascular: Yes: Regular Rate and Rhythm Respiratory: Yes: Regular, CTA Bilaterally Gastrointestinal: Yes: Soft Extremities: Yes: Other (chronic venous stasis changes b/l. RLE with swelling and erytema) Neurological: Yes: Alert Labs: CBC, BMP 06/08/19 07:30 06/08/19 07:30 Assessment/Plan 74M with AF on Eliquis, CHF, severe , CKD, venous insufficiency admitted with RLE cellulitis. Found to have rising eosinophil count. Peripheral smear unremarkable, eosinophilis mature. ?acute process. No associated allergic symptoms. Agree with strongyloides testing and stool O+P. Continue to monitor CBC. If eosinophilia persists, will w/u for primary hematologic causes. Please repeat PT/PTT. Eliquis should not cause prolonged PT.
[2019-06-08] MEDS: DOCUSATE SODIUM 100 MG CAPSULE (FP) PO SCH (21:48)
[2019-06-09] MEDS ORDERED: PIPERACILLIN/TAZOBACTAM 2.25 GM VIAL IVPB ONE ×2 (02:17→10:25)
[2019-06-09] MEDS ORDERED: DEXTROSE 5%-WATER - 50 ML IVPB ONE ×2 (02:17→10:25)
[2019-06-09] MEDS: PIPERACILLIN/TAZOB 2.25 GM 2.25 GM in DEXTROSE 5%-WATER - 50 ML IVPB SCH ×2 (02:22→10:27)
[2019-06-09 09:18] LABS: HEMOGLOBIN 12.1 GM/dL (11.7-16.9); LYMPH % 15.4 % (8-40); MCH 31.8 pg (25.7-33.7); MCHC 34.6 g/dl (32.0-35.9); MEAN CELL VOLUME 91.9 fl (80-96); MONO % 8.1 % (3.8-10.2); NEUT % 57.5 % (42.8-82.8); PLATELET COUNT 219 K/MM3 (134-434); RBC 3.81 M/mm3 (4.00-5.60); RDW 15.8 % (11.9-15.9); WHITE BLOOD COUNT 6.6 K/mm3 (4.0-10.0)
--- NOTE | 2019-06-09 09:47 | PN ---
Progress Note, Physician History of Present Illness: patient stable no complaints leg looking better - Current Medication List Current Medications: Active Medications Acetaminophen (Tylenol Oral Solution -) 650 mg PO Q6H PRN PRN Reason: PAIN LEVEL 1-5 Last Admin: 06/08/19 18:56 Dose: 650 mg Apixaban (Eliquis -) 5 mg PO BID [facility] Last Admin: 06/08/19 21:48 Dose: 5 mg Docusate Sodium (Colace -) 100 mg PO BID [facility] Last Admin: 06/08/19 21:48 Dose: 100 mg Piperacillin Sod/Tazobactam (Sod 2.25 gm/ Dextrose) 50 mls @ 100 mls/hr IVPB Q8H-IV NALDO; Protocol Last Admin: 06/09/19 02:22 Dose: 100 mls/hr Metoprolol Succinate (Toprol Xl -) 200 mg PO DAILY [facility] Last Admin: 06/08/19 10:42 Dose: 200 mg - Objective Vital Signs: Vital Signs Temperature 97.5 F L 06/09/19 05:38 Pulse Rate 80 06/09/19 05:38 Respiratory Rate 18 06/09/19 05:38 Blood Pressure 135/69 06/09/19 05:38 O2 Sat by Pulse Oximetry (%) 97 06/08/19 21:00 Constitutional: Yes: No Distress, Calm Cardiovascular: Yes: S1, S2 Respiratory: Yes: Regular, CTA Bilaterally Gastrointestinal: Yes: Normal Bowel Sounds, Soft Musculoskeletal: Yes: WNL Extremities: Yes: Other Neurological: Yes: Alert, Oriented Psychiatric: Yes: Alert, Oriented Labs: CBC, BMP 06/09/19 08:20 INR, PTT INR 1.69 (0.83-1.09) H 06/05/19 18:00 Assessment/Plan 74 year old male with past medical history of Afib (on Eliquis), HTN, CHF and chronic venous insufficiency, presented to the ED from wound care clinic due to worsening right lower leg edema and redness RLE cellulitis HENOK on CKD Elevated T bili/Alk phos Atrial fibrillation htn plan ct abx elevation of the leg rest as per the team might be able to change to oral will d/w the team
[2019-06-09 09:48] LABS: ALBUMIN 2.8 g/dl (3.4-5.0); BILIRUBIN,TOTAL 0.9 mg/dL (0.2-1); BLOOD UREA NITROGEN 20.3 mg/dL (7-18); CALCIUM 8.7 mg/dL (8.5-10.1); CREATININE 2.1 mg/dL (0.55-1.3); POTASSIUM 4.2 mmol/L (3.5-5.1); TOT PROT 6.5 g/dl (6.4-8.2)
[2019-06-09] MEDS: DOCUSATE SODIUM 100 MG CAPSULE (FP) PO SCH (10:26)
[2019-06-09] MEDS: APIXABAN 5 MG TABLET PO SCH (10:26)
--- NOTE | 2019-06-09 10:55 | CON.PULM ---
Consult Consult Specialty:: PULMONARY Referred by:: Dr Wall Reason for Consultation:: pleural effusion - History of Present Illness Chief Complaint: leg pain History of Present Illness: 74yo male with h/o HTN, aortic stenosis, atrial fibrillation who was admitted with RLE pain. Being treated for cellulitis with antibiotics. Noted to have a small right pleural effusion. He denies history of effusion or drainage. He denies shortness of breath but has had URI symptoms last few days, described as chest congestion. No fevers, chills or sweats. +nonproductive cough. Normally takes torsemide at home but being held due to renal insufficiency. - History Source History Provided By: Patient, Medical Record Limitations to Obtaining History: No Limitations - Past Medical History Cardio/Vascular: Yes: AFIB, Aortic Stenosis, HTN - Alcohol/Substance Use Hx Alcohol Use: No - Smoking History Smoking history: Never smoked Have you smoked in the past 12 months: No Home Medications - Allergies Allergies/Adverse Reactions: Allergies Allergy/AdvReac Type Severity Reaction Status Date / Time No Known Allergies Allergy Verified 06/05/19 15:36 - Home Medications Home Medications: Ambulatory Orders Losartan Potassium 1 tab PO DAILY 03/05/17 Metoprolol Succinate [Toprol Xl] 200 mg PO DAILY 03/05/17 Cholecalciferol (Vitamin D3) [Vitamin D3] 10,000 unit PO DAILY 07/25/18 Torsemide 20 mg PO DAILY 07/25/18 Apixaban [Eliquis -] 5 mg PO BID 06/05/19 Review of Systems - Review of Systems Constitutional: denies: Chills, Fever Eyes: denies: Recent Change in Vision HENT: denies: Nasal Congestion, Throat Pain Neck: denies: Stiffness, Tenderness Cardiovascular: denies: Chest Pain, Shortness of Breath Respiratory: reports: Cough. denies: Hemoptysis, Wheezing Gastrointestinal: denies: Abdominal Pain, Nausea, Vomiting Genitourinary: denies: Dysuria, Hematuria Endocrine: denies: Unexplained Weight Loss Physical Exam Vital Sings: Vital Signs Temperature 97.5 F L 06/09/19 05:38 Pulse Rate 80 06/09/19 05:38 Respiratory Rate 18 06/09/19 05:38 Blood Pressure 135/69 06/09/19 05:38 O2 Sat by Pulse Oximetry (%) 97 06/08/19 21:00 Constitutional: Yes: Calm Eyes: Yes: Conjunctiva Clear, EOM Intact HENT: Yes: Atraumatic, Normocephalic Neck: Yes: Supple, Trachea Midline Cardiovascular: Yes: Regular Rate and Rhythm Respiratory: Yes: Diminished (decreased breath sounds at the bases) ...Clubbing: No Gastrointestinal: Yes: Normal Bowel Sounds, Soft. No: Tenderness Extremities: Yes: Erythema Edema: Yes Labs: CBC, BMP 06/09/19 08:20 06/09/19 08:20 Imaging - Results Chest X-ray: Report Reviewed, Image Reviewed (small right effusion) Problem List - Problems (1) Cellulitis Code(s): L03.90 - CELLULITIS, UNSPECIFIED Qualifiers: Site of cellulitis: extremity Site of cellulitis of extremity: lower extremity Laterality: right Qualified Code(s): L03.115 - Cellulitis of right lower limb (2) HENOK (acute kidney injury) Code(s): N17.9 - ACUTE KIDNEY FAILURE, UNSPECIFIED (3) Pleural effusion Code(s): J90 - PLEURAL EFFUSION, NOT ELSEWHERE CLASSIFIED Assessment/Plan RLE Cellulitis Aortic Stenosis Right Pleural Effusion Acute on Chronic Renal Failure Eosinophilia - continue antibiotics for cellulitis - pleural effusion small, pt asymptomatic, would monitor as outpt with CXR in 4 -6 weeks - resume diuretic when renal failure improves - if effusion persists, can get CT chest noncontrast and diagnostic thoracentesis to further evaluate - DVT prophylaxis Thank you for this consult James Alva MD
[2019-06-09] MEDS: ACETAMINOPHEN 650 MG/20.3 ML ORAL SOLUTION (CUPS) PO PRN (10:57)
--- NOTE | 2019-06-09 14:05 | PN ---
Progress Note, Physician History of Present Illness: Pt seen and examined at bedside. He is awake and appears comfortable. He denies shortness of breath. - Current Medication List Current Medications: Active Medications Acetaminophen (Tylenol Oral Solution -) 650 mg PO Q6H PRN PRN Reason: PAIN LEVEL 1-5 Last Admin: 06/09/19 10:57 Dose: 650 mg Amoxicillin/Clavulanate Potassium (Augmentin - 500mg Tablet) 1 tab PO BID@0800, 1730 COUNTS INCLUDE 234 BEDS AT THE [facility] Apixaban (Eliquis -) 5 mg PO BID COUNTS INCLUDE 234 BEDS AT THE [facility] Last Admin: 06/09/19 10:26 Dose: 5 mg Docusate Sodium (Colace -) 100 mg PO BID COUNTS INCLUDE 234 BEDS AT THE [facility] Last Admin: 06/09/19 10:26 Dose: 100 mg Metoprolol Succinate (Toprol Xl -) 200 mg PO DAILY COUNTS INCLUDE 234 BEDS AT THE [facility] Last Admin: 06/09/19 10:26 Dose: 200 mg - Objective Vital Signs: Vital Signs Temperature 97.5 F L 06/09/19 10:52 Pulse Rate 92 H 06/09/19 10:52 Respiratory Rate 19 06/09/19 10:52 Blood Pressure 132/68 06/09/19 10:52 O2 Sat by Pulse Oximetry (%) 97 06/08/19 21:00 Constitutional: Yes: Calm Eyes: Yes: Conjunctiva Clear HENT: Yes: Atraumatic Neck: Yes: Supple Cardiovascular: Yes: S1, S2 Respiratory: Yes: CTA Bilaterally Gastrointestinal: Yes: Normal Bowel Sounds, Soft Genitourinary: Yes: WNL Musculoskeletal: Yes: WNL Edema: No Neurological: Yes: Oriented Psychiatric: Yes: Oriented Labs: CBC, BMP 06/09/19 08:20 06/09/19 08:20 INR, PTT INR 1.69 (0.83-1.09) H 06/05/19 18:00 Assessment/Plan Current Medications Generic Name Dose Route Start Last Admin Trade Name Freq PRN Reason Stop Dose Admin Acetaminophen 650 mg 06/07/19 19:14 06/09/19 10:57 Tylenol Oral Solution - PO 650 mg Q6H PRN Administration PAIN LEVEL 1-5 Amoxicillin/Clavulanate Potassium 1 tab 06/09/19 17:30 Augmentin - 500mg Tablet PO BID@0800,1730 COUNTS INCLUDE 234 BEDS AT THE [facility] Apixaban 5 mg 06/07/19 22:00 09/09/19 10:26 Eliquis - PO 5 mg BID NALDO Administration Docusate Sodium 100 mg 06/08/19 22:00 06/09/19 10:26 Colace - PO 100 mg BID NALDO Administration Metoprolol Succinate 200 mg 06/08/19 10:00 06/09/19 10:26 Toprol Xl - PO 200 mg DAILY NALDO Administration Impression 1. HENOK 2. CKD 3. HTN 4. peripheral eosinophilia PLAN - renal function is improving - can see pt in office - diuretics on hold - discussed with medical team - ua reviewed
[2019-06-09 14:17] VITALS: BP 132/83; PULSE 95; TEMP 97.4
--- NOTE | 2019-06-09 14:39 | PN ---
Teaching Attending Note Name of Resident: Martín Sarah ATTENDING PHYSICIAN STATEMENT I saw and evaluated the patient. I reviewed the resident's note and discussed the case with the resident. I agree with the resident's findings and plan as documented. DOA per chart DOD today Dispo: Home with services Diet: Resume home diet Wound Care: Follow all wound care instruction per Dr. Greer. Continue home care with VNS and keep all scheduled appointments. Followup: a) CV: 1 week b) PCP: 3-5 days c) Nephrology: 1-2 weeks d) ID: 1-2 weeks e) Vascular Sgy: 1-2 weeks Counseled extensively regarding warning signs, etc. and when to return to ER or call MD. He verbalized understanding. Seen and examined; please see resident note for further historical info. Briefly, he continues to improve. ID recommended PO abx. CV saw; no acute medication changes and OP followup recommended for (presumed mod to severe; see their note for further details). He will require home VNS services and this is being arranged through case management and will confirm before DC order is placed. He is afebrile an hemodynamically stable without white count. For further discussion please see problem list. VS, labs, imaging reviewed NAD, AAO, resting in bed RRR s1/2 mod sys murm NC AT EOMI PERRLA Cellulitis improved; underlying PAD changes noted but +LE pulses, no weeping. NT ND +BS CN2-12 wnl, no fnd Normal mood, appropriate behavior Problem List/Hospital Course: # LE Cellulitis *(Improved; was on broad spectrum then PO abx; wound care. Made worse with underlying vascular disease, etc.) # PAD *Vascular saw here; stated no inpatient intervention noted. PAD noted on dopplers. Will followup OP as scheduled. # Peripheral eosinophilia * IgE, strongyloides pending. O and P pending. Improved without intervention. No allergic symptoms. Can followup OP with heme/onc and monitor for improvement. # Severe , knownn *Cleared with cardiology; no acute medication changes. Continue with home metoprolol at current dose. Was considering fractioning but given improved HR no indication for further changes. Appreciate CV input and FU OP. # CKD *Baseline last year ~1.8 and is now 2.3 12 months later likely representing organic worsening which would be expected. Followup with Dr. Hernandes as OP. Appreciate expert consultation. Code status unchanged through hosptialization
[2019-06-09] MEDS ORDERED: AMOX TR/POT CLAV 500MG/125MG TABLETS (FP) PO SCH (17:30)
--- NOTE | 2019-06-09 22:04 | DS ---
Physical Exam: SUBJECTIVE: Patient seen and examined at bedside. OBJECTIVE: Vital Signs Period Temp Pulse Resp BP Sys/Whelan Pulse Ox Last 24 Hr 97.4 F-97.5 F 80-95 18-19 132-135/68-83 97 PHYSICAL EXAM GENERAL: The patient is awake, alert, and fully oriented, in no acute distress. HEAD: Normal with no signs of trauma. EYES: PERRL, extraocular movements intact, sclera anicteric, conjunctiva clear. ENT: Ears normal, nares patent, oropharynx clear without exudates, moist mucous membranes. NECK: Trachea midline, full range of motion, supple. LUNGS: Breath sounds equal, clear to auscultation bilaterally, no wheezes, no crackles, no accessory muscle use. HEART: Regular rate and rhythm, S1, S2 without murmur, rub or gallop. ABDOMEN: Soft, nontender, nondistended, normoactive bowel sounds, no guarding, no rebound, no hepatosplenomegaly, no masses. EXTREMITIES: 2+ pulses, warm, well-perfused, no edema. resolving cellulitis. NEUROLOGICAL: Cranial nerves II through XII grossly intact. Normal speech, gait not observed. PSYCH: Normal mood, normal affect. SKIN: Warm, dry, normal turgor, no rashes or lesions noted. LABS Laboratory Results - last 24 hr 06/09/19 06/09/19 08:20 08:20 WBC 6.6 RBC 3.81 L Hgb 12.1 Hct 35.0 L MCV 91.9 MCH 31.8 MCHC 34.6 RDW 15.8 Plt Count 219 D MPV 8.0 Absolute Neuts (auto) 3.8 Neutrophils % 57.5 Lymphocytes % 15.4 Monocytes % 8.1 Eosinophils % 18.0 H Basophils % 1.0 Nucleated RBC % 0 Sodium 140 Potassium 4.2 Chloride 106 Carbon Dioxide 29 Anion Gap 5 L BUN 20.3 H Creatinine 2.1 H Est GFR (CKD-EPI)AfAm 35.13 Est GFR (CKD-EPI)NonAf 30.31 Random Glucose 103 Calcium 8.7 Total Bilirubin 0.9 AST 22 ALT 22 Alkaline Phosphatase 96 Total Protein 6.5 Albumin 2.8 L HOSPITAL COURSE: Date of Admission:06/05/19 Date of Discharge: 06/09/19 Patient is a 74 year old male with past medical history of Afib (on Eliquis), HTN, CHF and chronic venous insufficiency, presented to the ED from wound care clinic due to worsening right lower leg edema and redness for 1 week. The patient's Cellulitis was likely exacerbated by his underlying vascular disease. He was treated with broad spectrum IV abx and was transitioned to a PO course with wound care. The patient was seen by infectious diseases who managed his antibiotic coverage. The patient's known PAD was noted. Vascular surgery saw the patient and reviewed his dopplers. It was determined that no surgical intervention was needed at the moment. OF note, the patient had Peripheral eosinophilia. He had IgE, strongyloides studies done. The eosinophilia improved without intervention. He was without allergic symptoms throughout his stay. He was given instructions to follow up with heme/onc as an outpatient. The patient's known Severe was noted by cardiology; no acute medication changes were made. He was continued with home metoprolol. His CKD worse than prior documented numbers, however it was felt that given the time gap between values this may represent a natural progression of his disease. He was seen by nephrology and will continue to follow up as an out patient. Stable for discharge Minutes to complete discharge: 30 Discharge Summary Reason For Visit: ACUTE KIDNEY INJURY,CELLULITIS Condition: Improved - Instructions Diet, Activity, Other Instructions: You were in the hospital because of cellulitis and kidney injury. You need to follow up with the following doctors: Dr. Mcdowell, primary care, 3-[address] Greer, vascular surgery, [address] Hernandes, Nephrology, 2-[address] Matt Luz, Cardiology, 1 week (Mukesh valdes) Hematology/Oncology, [address] Alva, Pulmonology, 4-6 weeks, you will need a repeat chest x-ray You are being sent home with the following medication changes: STOP taking your Torsemide until you see the waterproofing machine operator in 2-3 days. TAKE Augmentin 500mg-125mg twice daily for 7 days If your symptoms get worse, please return to the emergency department or call your doctor. Referrals: Antoni Mcdowell MD [Primary Care Provider] - 06/12/19 Leeroy Allen MD [Staff Physician] - 1 Week Judd Greer DO [Staff Physician] - 1 Week Allison Hernandes MD [Staff Physician] - 06/11/19 Disposition: HOME - Home Medications Comprehensive Discharge Medication List: Ambulatory Orders Losartan Potassium 1 tab PO DAILY 03/05/17 Metoprolol Succinate [Toprol Xl] 200 mg PO DAILY 03/05/17 Cholecalciferol (Vitamin D3) [Vitamin D3] 10,000 unit PO DAILY 07/25/18 Apixaban [Eliquis -] 5 mg PO BID 06/05/19 Amoxicillin/Potassium Clav [Augmentin 500-125 Tablet] 1 each PO BID #14 tablet 06/09/19 ATTENDING PHYSICIAN STATEMENT I saw and evaluated the patient. I reviewed the resident's note and discussed the case with the resident. I agree with the resident's findings and plan as documented. SUBJECTIVE: OBJECTIVE: ASSESSMENT AND PLAN:
[2019-06-12 11:09] LABS: D002 D FARINAE MITE 0.45; M006-ALTERNARIA <0.10
[2019-06-12 11:10] LABS: F001 EGG WHITE 0.51
[2019-06-12 11:31] LABS: D002 D FARINAE MITE 0.45; M006-ALTERNARIA <0.10
[2019-06-12 11:32] LABS: F001 EGG WHITE 0.51
[2019-06-12 11:34] LABS: F018 BRAZIL NUT < 0.10
[2019-06-12 11:35] LABS: F201 PECAN NUT < 0.10
== END 2019-06-09 17:06 | disposition home or self-care (01) | DRG 603 ==
LOC: JER 15:30 → JERBED 19:53 → J6S 06-06 00:05
PROVIDERS: ADMIT Internal Medicine; ATTEND Internal Medicine
DX: L03.115 Cellulitis of right lower limb (principal); N17.9 Acute kidney failure, unspecified; I13.0 Hypertensive heart and chronic kidney disease with heart failure and stage 1 through stage 4 chronic kidney disease, or unspecified chronic kidney disease; N18.9 Chronic kidney disease, unspecified; I48.91 Unspecified atrial fibrillation; Z79.02 Long term (current) use of antithrombotics/antiplatelets; R00.0 Tachycardia, unspecified; E80.6 Other disorders of bilirubin metabolism; D72.1 Eosinophilia; I35.0 Nonrheumatic aortic (valve) stenosis; I87.2 Venous insufficiency (chronic) (peripheral); I87.8 Other specified disorders of veins; I73.9 Peripheral vascular disease, unspecified
CPT/HCPCS: 36415; 71045-TC-FY; 73590-TC-RT-FY; 76700-TC; 80053; 81003; 82436; 82565; 83735; 83880; 83935; 84100; 84133; 84156; 84300; 84540; 85025; 85610; 85651; 86003; 86140; 86682; 87040; 93005; 93010; 93306-TC; 93971-TC; 97116-GP; 97161-GP; 99282-25; A6196; G0463-25; G0480; J7030